=== PATIENT | female | born 1930 | race Caucasian/White ===

== ENCOUNTER 2017-03-07 14:15 | Inpatient (IN) ==
[2017-03-07] MEDS ORDERED: traMADol 50 MG TABLET PO PRN (15:29)
[2017-03-07] MEDS ORDERED: ONDANSETRON 4 MG/2 ML VIAL IV PRN (15:29)
[2017-03-07] MEDS ORDERED: MAGNESIUM HYDROXIDE SUSP 30 ML UDCUP PO PRN (15:29)
[2017-03-07] MEDS ORDERED: ACETAMINOPHEN 325 MG TABLET PO PRN (15:29)
[2017-03-07] MEDS ORDERED: SKIN HEALING OINT (AQUAPHOR) 50 GM TUBE TOP PRN (15:41)
[2017-03-07] MEDS: SODIUM CHLORIDE 0.45% 1,000 ML IV SCH (17:11)
[2017-03-07 17:14] LABS: Basophils # 0.1 10*3/uL (0.0-0.2); Basophils % 0.4 % (0.0-0.8); Eosinophils # 0.1 10*3/uL (0.0-0.87); Eosinophils % 0.8 % (0.00-10.9); Hematocrit 35.3 VOL% (35.7-47.0); Hemoglobin 11.6 GM/DL (12.0-16.0); Immature Granulocytes % 0.5 %; Immature Granulocytes Absolute 0.07 #; Lymphocytes # 1.6 10*3/uL (1.4-4.0); Lymphocytes % 12.8 % (21.3-54.2); Mean Corpuscular HGB Conc 32.9 GM/DL (32-36); Mean Corpuscular Hemoglobin 29 PG (27-34); Mean Corpuscular Volume 88.9 FL (87-102); Mean Platelet Volume 9.9 FL (9.6-12.0); Monocytes # 0.8 10*3/uL (0.11-0.8); Neutrophils # 10.1 10*3/uL (1.4-7.4); Neutrophils % 79.5 % (38.7-73.9); Platelet Count 507 T/CUMM (130-400); Red Blood Count 3.97 MC/CUMM (3.8-5.5); Red Cell Distribution Width 14.6 % (9.3-17.3); White Blood Count 12.8 T/CUMM (4-12)
[2017-03-07 17:24] LABS: Apearance,Urine Slightly Hazy (Clear); Bilirubin,Urine Negative (Negative); Blood, Urine Negative (Negative); Glucose,Urine (UA) Negative (Negative); Ketones,Urine Negative (Negative); Mucus,Urine Moderate /LPF (Occasional); Nitrite,Urine Negative (Negative); Protein,Urine 30 MG/DL; RBC,Urine 16 /HPF (0-4); Squamous Epithelial Cell,Urine Occasional /HPF (0-10); Urine Color Yellow (Yellow); Urine Specific Gravity 1.016 (1.001-1.035); Urine Urobilinogen < 2.0 EU/DL (0.2-1.0); WBC,Urine 2 /HPF (0-6)
[2017-03-07] MEDS: AZITHROMYCIN INJ 250 MG in SODIUM CHLORIDE 0.9% 250 ML IV SCH (17:42)
[2017-03-07] MEDS: CETIRIZINE 10 MG TABLET PO SCH (17:42)
--- NOTE | 2017-03-07 17:45 | XRay Report ---
Exam: XR chest 2V Indication: Shortness of breath Comparison study: Prior chest radiograph 04/26/2014 Findings: The heart, mediastinum and bony structures are stable from prior. There is improved aeration within the lung bases with diffuse mild hyperexpansion of the lungs and interstitial chronic scarring changes noted. There is no focal consolidation, pneumothorax or pleural effusion identified. Impression: Improved aeration within the lung bases with similar chronic COPD/scarring changes otherwise noted. No acute process. PROCEDURE INTERPRETED AT [facility] DEPARTMENT OF RADIOLOGY Final Report Signed by: Daniel Tarango
[2017-03-07 18:01] LABS: Albumin 2.6 G/DL (3.4-5.0); Bilirubin,Total 0.4 MG/DL (0.2-1.0); Calcium 8.9 MG/DL (8.5-10.1); Magnesium 2.3 MG/DL (1.8-2.4); Osmolality,Calculated 274.7 MOS/KG (273-304); Potassium 3.9 MMOL/L (3.5-5.1); Total Protein 6.4 G/DL (6.4-8.3)
[2017-03-07 19:36] LABS: Free T4 (Free Thyroxine) 1.63 NG/DL (0.76-1.46); Thyroid Stimulating Hormone 2.61 uIU/ml (0.358-3.74)
[2017-03-07] MEDS: BUDESONIDE 0.25 MG/2 ML NEB RESP TX SCH (19:38)
[2017-03-07] MEDS: ALBUTEROL/IPRATROPIUM 3 ML NEB RESP TX SCH (19:38)
--- NOTE | 2017-03-07 19:58 | Internal Med History&Physical ---
Assessment and Plan (1) COPD exacerbation Status: Acute Current Visit: Yes (2) Bronchiectasis Status: Chronic Current Visit: Yes (3) History of Mycobacterium avium intracellulare infection Status: Chronic Current Visit: Yes (4) Fever Status: Acute Current Visit: Yes (5) Generalized weakness Status: Chronic Current Visit: Yes (6) Leukocytosis Status: Acute Current Visit: Yes (7) Loss of appetite Status: Acute Current Visit: Yes (8) Malaise and fatigue Status: Acute Current Visit: Yes History of Present Illness Chief complaint: fever and malaise History of present illness: Ms. Peter is a 86 year old female with history of COPD, restrictive lung disease, bronchiectasis and on Azithromycin three days weekly, Mycobacterium avium intracellulare, allergic rhinitis, acid reflux, HTN, low magnesium, IBS, anemia iron deficiency and chronic illness, poor appetite, Vit D deficiency, who presented in clinic last week with fever and malaise, upper respiratory symptoms, cough. She was treated in clinic with Rocephin, DepoMedrol, Azithromycin, Medrol dose pack, and she did not feel any better. She was admitted today for further workup and treatment with IV medications and fluids. Dr. Fitzgerald consulted to evaluate whether this is a flare up of Mycobacterium infection. She has been febrile for several days. Home Medications Medication Instructions Recorded Confirmed Type Atenolol 25 mg PO 1200 10/11/16 03/07/17 History Ipratropium/Albuterol Inhaler 1 puff INH BID 10/11/16 03/07/17 History [Combivent Respimat Inhaler] Omeprazole 20 mg PO 1900 10/11/16 03/07/17 History Azithromycin Tab [Zithromax Tab] 250 mg PO DIRECTED 03/07/17 03/07/17 History Cholecalciferol (Vitamin D3) 5,000 unit PO 1200 03/07/17 03/07/17 History [Vitamin D3] Multivitamin [Multivitamins] 1 each PO 1200 03/07/17 03/07/17 History Sucralfate Tab [Carafate Tab] 1 gm PO ACHS 03/07/17 03/07/17 History Tiotropium Br/Olodaterol HCl 2 puffs IH 1200 03/07/17 03/07/17 History [Stiolto Respimat Inhal [place]] Allergies Allergy/AdvReac Type Severity Reaction Status Date / Time Amoxicillin [From Augmentin] Allergy Unknown Diarrhea Verified 10/07/16 09:36 ciprofloxacin [From Cipro] Allergy Unknown Unknown/Unable Verified 10/07/16 09: 36 to obtain clavulanic acid Allergy Unknown Diarrhea Verified 10/07/16 09:36 [From Augmentin] codeine Allergy Unknown Unknown/Unable Verified 10/07/16 09:36 to obtain sulfacetamide Allergy Unknown Unknown/Unable Verified 10/07/16 09:36 [From Sulfacet-R] to obtain sulfur [From Sulfacet-R] Allergy Unknown Unknown/Unable Verified 10/07/16 09:36 to obtain Medical,Surgical,& Family Hx - Medical History Cardio: History of: Hypertension Neurology: No history of: Seizures Respiratory: History of: Bronchitis, COPD, Pneumonia, Respiratory Problems ( macobacaterium avium; chronic bronchiectasis) Gastrointestinal: History of: GERD, GI Problems (diarrhea; IBS) Hematology: History of: Anemia (iron deficiency and chronic illness) - Surgical History HEENT Surgeries: Surgical HX of: Eye Surgery (cataract), Tonsilectomy & Adenoidectomy Abdominal Surgeries: Surgical HX of: Appendectomy, Cholecystectomy, Colonoscopy , EGD Reproductive Surgeries: Surgical HX of;: Hysterectomy (partial) - Family History Family History: Reports;: Family Heart Disease (sister), Family Hypertension ( sister,mother) - Social History Smoking Status: Never smoker Frequency of Alcohol Use: None Type of Drug Use: None Marital Status: Lives With:: Spouse Functional capacity: independent ambulation - Constitutional Constitutional: Present: anorexia, fatigue, fever(s), lethargy, malaise, night sweats, weakness, weight loss - EENT Nose, mouth and throat: Present: headache(s), nasal congestion, sinus pressure - Respiratory Respiratory: Present: cough, dyspnea on exertion - Gastrointestinal Gastrointestinal: Present: diarrhea (frequent) - Musculoskeletal Musculoskeletal: Present: muscle weakness, myalgias Exam - Constitutional Vitals: Period Temp Pulse Resp BP Sys/Vaughn Pulse Ox Last 24 Hr 99.6 F 86 20 151/76 95 General appearance: no acute distress - Head Head exam: Present: normocephalic - Eye Eye exam: Present: EOMI - Respiratory Respiratory exam: Present: rhonchi (scattered and diffuse right more so than left; good airflow overall) - Cardiovascular Cardiovascular exam: Present: regular rate and rhythm - GI/Abdominal GI/Abdominal exam: Present: soft. Absent: tenderness - Extremities Exam Extremities exam: Absent: edema - Neurological Exam Neurological exam: Present: alert, oriented X3 - Psychiatric Psychiatric exam: Present: normal affect - Skin Skin exam: Present: warm, dry Results - Labs CBC & BMP: 03/07/17 16:33 03/07/17 16:33 - Diagnostic Findings Procedure: Chest x-ray: image reviewed by me, report reviewed by me Quality Measures - Stroke Symptom Onset Unknown: No
[2017-03-07] MEDS: ENOXAPARIN 40 MG/0.4 ML SYRINGE SUBCUT SCH (21:07)
[2017-03-07] MEDS: MEGESTROL 400 MG/10 ML UDCUP PO SCH (21:08)
[2017-03-07] MEDS: DOCUSATE SODIUM 100 MG CAPSULE PO SCH (21:08)
[2017-03-07] MEDS: FAMOTIDINE 20 MG TABLET PO SCH (21:08)
[2017-03-07] MEDS: methylPREDNISolone SOD SUC 40 MG/1 ML VIAL IV SCH (21:09)
[2017-03-08] MEDS: ALBUTEROL/IPRATROPIUM 3 ML NEB RESP TX SCH ×4 (00:18→20:06)
[2017-03-08] MEDS: SODIUM CHLORIDE 0.45% 1,000 ML IV SCH ×3 (05:22→22:49)
[2017-03-08] MEDS: BUDESONIDE 0.25 MG/2 ML NEB RESP TX SCH ×2 (07:18→20:06)
--- NOTE | 2017-03-08 07:18 | Order Completion Report ---
See report scanned to EMR
--- NOTE | 2017-03-08 07:47 | Pulmonology Consult Note ---
Assessment and Plan (1) COPD exacerbation Status: Acute Assessment and plan: Treat with empiric antibiotics and steroids. She has been on 3 different rounds of oral antibiotics I think we should use broad-spectrum ones. Do need cultures for bacteria and AFB. I will plan bronchoscopy in the morning to obtain those Current Visit: Yes (2) Bronchiectasis Status: Chronic Assessment and plan: Long history of documented bronchiectasis. The Zithromax Tuesday is to decrease the number of bacterial infections associated with that. Current Visit: Yes (3) History of Mycobacterium avium intracellulare infection Status: Chronic Assessment and plan: Need to see if there is active infection. Current Visit: Yes History of Present Illness Chief complaint: Cough congestion fever History of present illness: Ms. Peter is a 86 year old female who has bronchiectasis and COPD. She has a previous history of Mycobacterium avium infection. She was treated at one time attempt chronically placed on Zithromax 3 days a week. This is primarily for her bronchiectasis but also would suppress M avium in some cases. She has now had cough congestion and fever going on for about 3 months. She has had 3 rounds of antibiotics and prednisone. Each time she would stop the antibiotic and prednisone for fever and cough would recur. She is in now with worsening symptoms. She feels a little better this morning. The question has come up as to whether this represents a bacterial infection with exacerbation of her bronchiectasis or recurrence of her Mycobacterium avium. I do think it would be worthwhile to get cultures to see exactly what the organism is. Home Medications Medication Instructions Recorded Confirmed Type Atenolol 25 mg PO 1200 10/11/16 03/07/17 History Ipratropium/Albuterol Inhaler 1 puff INH BID 10/11/16 03/07/17 History [Combivent Respimat Inhaler] Omeprazole 20 mg PO 1900 10/11/16 03/07/17 History Azithromycin Tab [Zithromax Tab] 250 mg PO DIRECTED 03/07/17 03/07/17 History Cholecalciferol (Vitamin D3) 5,000 unit PO 1200 03/07/17 03/07/17 History [Vitamin D3] Multivitamin [Multivitamins] 1 each PO 1200 03/07/17 03/07/17 History Sucralfate Tab [Carafate Tab] 1 gm PO ACHS 03/07/17 03/07/17 History Tiotropium Br/Olodaterol HCl 2 puffs IH 1200 03/07/17 03/07/17 History [Stiolto Respimat Inhal [place]] Allergies Allergy/AdvReac Type Severity Reaction Status Date / Time Amoxicillin [From Augmentin] Allergy Unknown Diarrhea Verified 10/07/16 09:36 ciprofloxacin [From Cipro] Allergy Unknown Unknown/Unable Verified 10/07/16 09: 36 to obtain clavulanic acid Allergy Unknown Diarrhea Verified 10/07/16 09:36 [From Augmentin] codeine Allergy Unknown Unknown/Unable Verified 10/07/16 09:36 to obtain sulfacetamide Allergy Unknown Unknown/Unable Verified 10/07/16 09:36 [From Sulfacet-R] to obtain sulfur [From Sulfacet-R] Allergy Unknown Unknown/Unable Verified 10/07/16 09:36 to obtain 12 point system: reviewed and no additional remarkable complaints except as stated - Constitutional Constitutional: Present: anorexia, fatigue, fever(s), malaise, night sweats, weakness, weight loss - EENT Nose, mouth and throat: Present: headache(s), nasal congestion, sinus pressure - Cardiovascular Cardiovascular: Present: dyspnea, dyspnea on exertion - Respiratory Respiratory: Present: cough, dyspnea, dyspnea on exertion, wheezing, change in phlegm color - Gastrointestinal Gastrointestinal: Present: diarrhea - Musculoskeletal Musculoskeletal: Present: arthralgias, muscle weakness Exam (Pulmonay) H&P - Constitutional Vitals: Period Temp Pulse Resp BP Sys/Vaughn Pulse Ox Last 24 Hr 97.6 F-99.6 F 62-88 16-20 117-151/50-76 91-100 Exam: Vital signs normal. Pupils react to light. Throat is clear. Chest reveals some musical rhonchi bilaterally. Heart normal rate and rhythm no murmurs, rubs or gallops. Abdomen soft nontender no masses. Bowel sounds present. Extremities no clubbing cyanosis or edema. Calves nontender. Medical,Surgical,& Family Hx - Medical History Cardio: History of: Hypertension Neurology: No history of: Seizures Respiratory: History of: Bronchitis, COPD, Pneumonia, Respiratory Problems ( macobacaterium avium; chronic bronchiectasis) Gastrointestinal: History of: GERD, GI Problems (diarrhea; IBS) Hematology: History of: Anemia (iron deficiency and chronic illness) - Surgical History HEENT Surgeries: Surgical HX of: Eye Surgery (cataract), Tonsilectomy & Adenoidectomy Abdominal Surgeries: Surgical HX of: Appendectomy, Cholecystectomy, Colonoscopy , EGD Reproductive Surgeries: Surgical HX of;: Hysterectomy (partial) - Family History Family History: Reports;: Family Heart Disease (sister), Family Hypertension ( sister,mother) - Social History Smoking Status: Never smoker Frequency of Alcohol Use: None Type of Drug Use: None Results - Labs CBC & BMP: 03/07/17 16:33 03/07/17 16:33 Lab Results: I have reviewed the past 24 hour labs - Diagnostic Findings Procedure: Chest x-ray: image reviewed by me (Bibasilar chronic interstitial changes. Those in the right lower lobe most consistent with bronchiectasis. Little change from previous x-ray here of 2013.) Quality Measures - Stroke Symptom Onset Unknown: No
[2017-03-08 08:05] LABS: PT Patient Result 10.7 SECS; Partial Thromboplastin Time 26.1 SECS (0-40)
[2017-03-08 08:08] LABS: Calcium 8.7 MG/DL (8.5-10.1); Osmolality,Calculated 276.5 MOS/KG (273-304); Potassium 3.8 MMOL/L (3.5-5.1)
[2017-03-08] MEDS: MEGESTROL 400 MG/10 ML UDCUP PO SCH ×2 (09:34→20:59)
[2017-03-08] MEDS: DOCUSATE SODIUM 100 MG CAPSULE PO SCH ×2 (09:34→20:59)
[2017-03-08] MEDS: methylPREDNISolone SOD SUC 40 MG/1 ML VIAL IV SCH ×2 (09:35→21:01)
[2017-03-08] MEDS: FAMOTIDINE 20 MG TABLET PO SCH ×2 (09:35→20:59)
[2017-03-08] MEDS: ATENOLOL 25 MG TABLET PO SCH (09:35)
[2017-03-08] MEDS: CETIRIZINE 10 MG TABLET PO SCH (09:35)
[2017-03-08] MEDS: AZITHROMYCIN INJ 250 MG in SODIUM CHLORIDE 0.9% 250 ML IV SCH (16:53)
[2017-03-08] MEDS: ENOXAPARIN 40 MG/0.4 ML SYRINGE SUBCUT SCH (21:00)
--- NOTE | 2017-03-08 21:09 | Internal Med Progress Note ---
Assessment and Plan (1) COPD exacerbation Status: Acute Current Visit: Yes (2) Bronchiectasis Status: Chronic Current Visit: Yes (3) History of Mycobacterium avium intracellulare infection Status: Chronic Current Visit: Yes (4) Fever Status: Acute Current Visit: Yes (5) Generalized weakness Status: Chronic Current Visit: Yes (6) Leukocytosis Status: Acute Current Visit: Yes (7) Loss of appetite Status: Chronic Current Visit: Yes (8) Malaise and fatigue Status: Chronic Current Visit: Yes Internal Medicine - PN: Subj Interval history: Ms. Peter is a 86 year old female with history of COPD, restrictive lung disease, bronchiectasis and on Azithromycin three days weekly, Mycobacterium avium intracellulare, allergic rhinitis, acid reflux, HTN, low magnesium, IBS, anemia iron deficiency and chronic illness, poor appetite, Vit D deficiency, who presented in clinic last week with fever and malaise, upper respiratory symptoms, cough. She is feeling better today. She will have bronchoscopy tomorrow obtaining samples to help delineate exactly which infection she actually has. Exam (Progress Note) - Constitutional Vitals: Period Temp Pulse Resp BP Sys/Vaughn Pulse Ox Last 24 Hr 97.3 F-99.1 F 62-88 16-20 117-139/50-55 91-100 General appearance: no acute distress - Respiratory Respiratory exam: Present: clear to auscultation bilaterally (very scattered rhonchi; largely clear) - Cardiovascular Cardiovascular exam: Present: regular rate and rhythm - GI/Abdominal GI/Abdominal exam: Present: soft. Absent: tenderness - Extremities Exam Extremities exam: Absent: edema - Neurological Exam Neurological exam: Present: alert, oriented X3 - Psychiatric Psychiatric exam: Present: normal mood - Skin Skin exam: Present: warm, dry Results - Labs CBC & BMP: 03/07/17 16:33 03/08/17 07:06 Quality Measures - Stroke Symptom Onset Unknown: No
[2017-03-09] MEDS: ALBUTEROL/IPRATROPIUM 3 ML NEB RESP TX SCH ×4 (01:05→19:09)
[2017-03-09] MEDS ORDERED: MEPERIDINE 50 MG/1 ML VIAL IM ONE (07:00)
[2017-03-09] MEDS ORDERED: PROMETHAZINE 25 MG/1 ML VIAL IM ONE (07:00)
[2017-03-09] MEDS: BUDESONIDE 0.25 MG/2 ML NEB RESP TX SCH ×2 (07:10→19:09)
[2017-03-09] MEDS ORDERED: MIDAZOLAM 2 MG/2 ML VIAL ONE (07:13)
[2017-03-09] MEDS ORDERED: MIDAZOLAM 2 MG/2 ML VIAL IV ONE (07:30)
[2017-03-09] MEDS ORDERED: LIDOCAINE 1% 20 ML VIAL MISC INJ ONE (07:30)
[2017-03-09] MEDS ORDERED: LIDOCAINE 2% 20 ML VIAL RESP TX ONE (07:30)
[2017-03-09 07:43] LABS: Basophils % 0.1 % (0.0-0.8); Hematocrit 33.6 VOL% (35.7-47.0); Hemoglobin 10.9 GM/DL (12.0-16.0); Immature Granulocytes % 0.3 %; Immature Granulocytes Absolute 0.02 #; Lymphocytes # 1.5 10*3/uL (1.4-4.0); Lymphocytes % 19.2 % (21.3-54.2); Mean Corpuscular HGB Conc 32.4 GM/DL (32-36); Mean Corpuscular Hemoglobin 29 PG (27-34); Mean Corpuscular Volume 88.7 FL (87-102); Mean Platelet Volume 9.8 FL (9.6-12.0); Monocytes # 0.4 10*3/uL (0.11-0.8); Neutrophils # 5.9 10*3/uL (1.4-7.4); Neutrophils % 75.4 % (38.7-73.9); Platelet Count 429 T/CUMM (130-400); Red Blood Count 3.79 MC/CUMM (3.8-5.5); Red Cell Distribution Width 14.7 % (9.3-17.3); White Blood Count 7.8 T/CUMM (4-12)
--- NOTE | 2017-03-09 07:53 | Pulmonology Progress Note ---
Pulmonary - PN: Subj Interval history: This 86-year-old white female came in with exacerbation of her chronic bronchitis. She has bronchiectasis and has been treated chronically with Zithromax. She has a remote history of atypical TB with Mycobacterium avium. She is set up for bronchoscopy this morning. Exam (Progress Note) - Constitutional Vitals: Period Temp Pulse Resp BP Sys/Vaughn Pulse Ox Last 24 Hr 97.3 F-98.8 F 72-108 13-24 119-171/51-93 92-100 Exam: Patient's alert and afebrile. Pupils react to light. Throat is clear. Neck supple no bruits. Chest reveals some basilar rhonchi bilaterally as well as over the right middle lobe and lingula. Heart normal rate and rhythm no murmurs. Abdomen soft nontender no masses. Extremities no clubbing cyanosis edema. Calves nontender. Results - Labs CBC & BMP: 03/09/17 07:02 03/08/17 07:06 Lab Results: I have reviewed the past 24 hour labs Assessment and Plan (1) COPD exacerbation Status: Acute Assessment and plan: Treat with empiric antibiotics and steroids. She has been on 3 different rounds of oral antibiotics I think we should use broad-spectrum ones. Do need cultures for bacteria and AFB. I will plan bronchoscopy in the morning to obtain those 03/09/2017 continuing antibiotics and steroids as well as bronchodilators. Will check cultures from bronchoscopy when they are available. That would probably be Tuesday. Current Visit: Yes (2) Bronchiectasis Status: Chronic Assessment and plan: Long history of documented bronchiectasis. The Zithromax Tuesday is to decrease the number of bacterial infections associated with that. 03/09/2017 needs broad-spectrum antibiotics for this. Current Visit: Yes (3) History of Mycobacterium avium intracellulare infection Status: Chronic Assessment and plan: Need to see if there is active infection. 03/09/2017 check bronchial lavage for AFB. Current Visit: Yes
--- NOTE | 2017-03-09 07:56 | Operative Note ---
Date of procedure: 03/09/17 (Fiberoptic bronchoscopy with bronchoalveolar lavage both lower lobe) Pre-op diagnosis: Bronchiectasis with superimposed infection, chronic atypical TB Post-op diagnosis: same Procedure: Patient was given preoperative medications on the rodriguez. She was transported to the bronchoscopy suite. After an appropriate timeout to be sure we were dealing with Komal Peter, the patient was topically anesthetized in the nose and nasopharynx with Xylocaine. 3 L of nasal oxygen was placed in the left nares. Patient was given 2 mg of Versed intravenously. The fiberoptic bronchoscope was introduced via the right naris. The vocal cords were identified and noted to function normally with phonation. The trachea was entered and was noted to be mildly erythematous. There were increased secretions. 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 The donna was sharp. Right and left lungs were carefully inspected to the subsegmental level with no lesions seen. There were purulent secretions in the right middle lobe right lower lobe and left upper lobe primarily lingula. The bronchoscope was positioned first in the right middle lobe where we use 20 mL aliquots of saline for local alveolar lavage. This was done in the right middle lobe as well as right lower lobe. We then changed the trap and moved to the left side and lavage was carried out in the lingula. The bronchoscope was removed. Patient returned to her room in stable condition Anesthesia: conscious sedation Surgeon / Physician: Yung Fitzgerald Estimated blood loss: none Specimens: other (Bronchoalveolar lavage for routine AFB and fungal cultures as well as cytology, bilateral) Condition: stable Disposition: floor Results - Labs CBC & BMP: 03/09/17 07:02 03/08/17 07:06 Discharge Plan - Discharge Medications No Action Omeprazole 20 mg PO 1900 Azithromycin Tab [Zithromax Tab] 250 mg PO DIRECTED Multivitamin [Multivitamins] 1 each PO 1200 Ipratropium/Albuterol Inhaler [Combivent Respimat Inhaler] 1 puff INH BID Atenolol 25 mg PO 1200 Cholecalciferol (Vitamin D3) [Vitamin D3] 5,000 unit PO 1200 Sucralfate Tab [Carafate Tab] 1 gm PO ACHS Tiotropium Br/Olodaterol HCl [Stiolto Respimat Inhal [place]] 2 puffs IH 1200 - Follow Up or Referral - Forms/Instructions
[2017-03-09 08:12] LABS: Calcium 8.5 MG/DL (8.5-10.1); Osmolality,Calculated 282.1 MOS/KG (273-304); Potassium 3.7 MMOL/L (3.5-5.1)
[2017-03-09] MEDS: MEGESTROL 400 MG/10 ML UDCUP PO SCH ×2 (09:46→20:35)
[2017-03-09] MEDS: DOCUSATE SODIUM 100 MG CAPSULE PO SCH ×2 (09:46→20:35)
[2017-03-09] MEDS: methylPREDNISolone SOD SUC 40 MG/1 ML VIAL IV SCH ×2 (09:47→20:35)
[2017-03-09] MEDS: FAMOTIDINE 20 MG TABLET PO SCH ×2 (09:47→20:35)
[2017-03-09] MEDS: CETIRIZINE 10 MG TABLET PO SCH (09:47)
[2017-03-09] MEDS: ATENOLOL 25 MG TABLET PO SCH (09:47)
[2017-03-09] MEDS: SODIUM CHLORIDE 0.45% 1,000 ML IV SCH ×2 (09:47→16:32)
[2017-03-09] MEDS: AZITHROMYCIN INJ 250 MG in SODIUM CHLORIDE 0.9% 250 ML IV SCH (15:43)
--- NOTE | 2017-03-09 16:29 | Internal Med Progress Note ---
Assessment and Plan (1) COPD exacerbation Status: Acute Current Visit: Yes (2) Bronchiectasis Status: Chronic Current Visit: Yes (3) History of Mycobacterium avium intracellulare infection Status: Chronic Current Visit: Yes (4) Fever Status: Acute Current Visit: Yes (5) Generalized weakness Status: Chronic Current Visit: Yes (6) Leukocytosis Status: Acute Current Visit: Yes (7) Loss of appetite Status: Chronic Current Visit: Yes (8) Malaise and fatigue Status: Chronic Current Visit: Yes Internal Medicine - PN: Subj Interval history: Ms. Peter is a 86 year old female with history of COPD, restrictive lung disease, bronchiectasis and on Azithromycin three days weekly, Mycobacterium avium intracellulare, allergic rhinitis, acid reflux, HTN, low magnesium, IBS, anemia iron deficiency and chronic illness, poor appetite, Vit D deficiency, who presented in clinic last week with fever and malaise, upper respiratory symptoms, cough. She continues to feel better and is post-bronchoscopy. Cultures pending but no mycobacterium apparent. WBC improved today and afebrile. Will order physical therapy for tomorrow. Exam (Progress Note) - Constitutional Vitals: Period Temp Pulse Resp BP Sys/Vaughn Pulse Ox Last 24 Hr 97.3 F-98.8 F 74-118 12-24 118-183/46-93 92-100 General appearance: no acute distress - Respiratory Respiratory exam: Present: clear to auscultation bilaterally (rhonchi largely resolved) - Cardiovascular Cardiovascular exam: Present: regular rate and rhythm - GI/Abdominal GI/Abdominal exam: Present: soft. Absent: tenderness - Extremities Exam Extremities exam: Absent: edema - Neurological Exam Neurological exam: Present: alert, oriented X3 - Psychiatric Psychiatric exam: Present: normal mood - Skin Skin exam: Present: warm, dry Results - Labs CBC & BMP: 03/09/17 07:02 03/09/17 07:02 Quality Measures - Stroke Symptom Onset Unknown: No
[2017-03-09] MEDS: ENOXAPARIN 40 MG/0.4 ML SYRINGE SUBCUT SCH (20:35)
[2017-03-10 05:30] LABS: Hematocrit 30.9 VOL% (35.7-47.0); Hemoglobin 10.1 GM/DL (12.0-16.0); Immature Granulocytes % 0.5 %; Immature Granulocytes Absolute 0.05 #; Lymphocytes # 1.3 10*3/uL (1.4-4.0); Lymphocytes % 12.2 % (21.3-54.2); Mean Corpuscular HGB Conc 32.7 GM/DL (32-36); Mean Corpuscular Hemoglobin 29 PG (27-34); Mean Corpuscular Volume 89.3 FL (87-102); Mean Platelet Volume 9.8 FL (9.6-12.0); Monocytes # 0.4 10*3/uL (0.11-0.8); Monocytes % 3.8 % (1.7-12.7); NRBC # 0.02 10*3/uL; Neutrophils # 9.1 10*3/uL (1.4-7.4); Neutrophils % 83.5 % (38.7-73.9); Platelet Count 396 T/CUMM (130-400); Red Blood Count 3.46 MC/CUMM (3.8-5.5); Red Cell Distribution Width 15.1 % (9.3-17.3); White Blood Count 10.9 T/CUMM (4-12)
[2017-03-10 06:01] LABS: Calcium 8.5 MG/DL (8.5-10.1); Potassium 3.9 MMOL/L (3.5-5.1)
[2017-03-10] MEDS: ALBUTEROL/IPRATROPIUM 3 ML NEB RESP TX SCH ×4 (07:03→19:17)
[2017-03-10] MEDS: BUDESONIDE 0.25 MG/2 ML NEB RESP TX SCH ×2 (07:03→19:24)
--- NOTE | 2017-03-10 07:29 | Pulmonology Progress Note ---
Pulmonary - PN: Subj Interval history: This 86-year-old white female came in with exacerbation of her chronic bronchitis. She has bronchiectasis and has been treated chronically with Zithromax. She has a remote history of atypical TB with Mycobacterium avium. She is set up for bronchoscopy this morning. 03/10/2017 patient is feeling better today. We cleaned out a good bit of secretions yesterday. She has infected bronchiectasis. Cultures will be 2-3 weeks coming out as far as M avium is concerned. The negative smears do not necessarily rule out active disease. However would not start her back on full treatment for that at this time. Exam (Progress Note) - Constitutional Vitals: Period Temp Pulse Resp BP Sys/Vaughn Pulse Ox Last 24 Hr 97.5 F-98.6 F 74-118 12-24 112-183/46-93 92-100 Exam: Patient's alert and afebrile. Pupils react to light. Throat is clear. Neck supple no bruits. Chest reveals a few basilar rhonchi bilaterally as well as over the right middle lobe and lingula. Heart normal rate and rhythm no murmurs. Abdomen soft nontender no masses. Extremities no clubbing cyanosis edema. Calves nontender. Results - Labs CBC & BMP: 03/10/17 04:49 03/10/17 04:49 Lab Results: I have reviewed the past 24 hour labs Assessment and Plan (1) COPD exacerbation Status: Acute Assessment and plan: Treat with empiric antibiotics and steroids. She has been on 3 different rounds of oral antibiotics I think we should use broad-spectrum ones. Do need cultures for bacteria and AFB. I will plan bronchoscopy in the morning to obtain those 03/09/2017 continuing antibiotics and steroids as well as bronchodilators. Will check cultures from bronchoscopy when they are available. That would probably be Tuesday. 03/10/2017 continuing broad-spectrum antibiotics and steroids. Check cultures tomorrow. Probably can start reducing steroids then Current Visit: Yes (2) Bronchiectasis Status: Chronic Assessment and plan: Long history of documented bronchiectasis. The Zithromax Tuesday is to decrease the number of bacterial infections associated with that. 03/09/2017 needs broad-spectrum antibiotics for this. 03/10/2017 continuing broad-spectrum antibiotics for infected bronchiectasis. Hopefully we will get something from the cultures tomorrow. Current Visit: Yes (3) History of Mycobacterium avium intracellulare infection Status: Chronic Assessment and plan: Need to see if there is active infection. 03/09/2017 check bronchial lavage for AFB. 03/10/2017 smears for AFB were negative. However with Mycobacterium avium it is often the case that the smears are negative and cultures youth development professional positive. See no reason to change treatment until we get that report out. Current Visit: Yes
[2017-03-10] MEDS: FAMOTIDINE 20 MG TABLET PO SCH ×2 (09:16→20:27)
[2017-03-10] MEDS: methylPREDNISolone SOD SUC 40 MG/1 ML VIAL IV SCH ×2 (09:16→20:26)
[2017-03-10] MEDS: ATENOLOL 25 MG TABLET PO SCH (09:17)
[2017-03-10] MEDS: MEGESTROL 400 MG/10 ML UDCUP PO SCH ×2 (09:17→20:27)
[2017-03-10] MEDS: CETIRIZINE 10 MG TABLET PO SCH (09:17)
[2017-03-10] MEDS: SODIUM CHLORIDE 0.45% 1,000 ML IV SCH ×3 (09:17→17:29)
[2017-03-10] MEDS: DOCUSATE SODIUM 100 MG CAPSULE PO SCH ×2 (09:17→20:27)
--- NOTE | 2017-03-10 12:16 | Pathology Report from [facility] ---
[facility] [place] ACCESSION # : [id number] PATIENT NAME : Komal Peter ORDERING DR : YEMI BANDA MD CLINICAL HX: Chronic bronchitis, bronchiectasis POST-OP DX: Same SPECIMEN INFO: Lavage,Bronchial,Right - 15 mls light benjamin, cloudy CLASS: I CLASS COMMENTS: Acute inflammation, scant squamous and bronchial cells, bacteria.CELL BLOCK: Same CLASS LEGEND: CLASS 0 Material inadequate for diagnosis because of (see comment) CLASS I Absence of atypical or abnormal cells CLASS II Atypical Cytology but no evidence of malignancy CLASS III Cytology suggestive of but not conclusive for malignancy CLASS IV Cytology strongly suggestive of malignancy CLASS V Cytology conclusive for malignancy COLLECTED DATE: 03/09/2017 [facility] REPORT DATE: 03/10/2017 ELECTRONICALLY SIGNED BY: Pema Hubbard M.D. 03/10/2017 - 8:31:36 MTDNolvia
--- NOTE | 2017-03-10 12:16 | Pathology Report from [facility] ---
[facility] [place] ACCESSION # : [id number] PATIENT NAME : Komal Peter ORDERING DR : YEMI BANDA MD CLINICAL HX: Chronic Bronchitis, bronchiectasis POST-OP DX: Same SPECIMEN INFO: Lavage,Bronchial,Left - 10 mls light benjamin, cloudy CLASS: I CLASS COMMENTS: Acute inflammation, scant squamous and bronchial cells, bacteria.CELL BLOCK: Same CLASS LEGEND: CLASS 0 Material inadequate for diagnosis because of (see comment) CLASS I Absence of atypical or abnormal cells CLASS II Atypical Cytology but no evidence of malignancy CLASS III Cytology suggestive of but not conclusive for malignancy CLASS IV Cytology strongly suggestive of malignancy CLASS V Cytology conclusive for malignancy COLLECTED DATE: 03/09/2017 [facility] REPORT DATE: 03/10/2017 ELECTRONICALLY SIGNED BY: Pema Hubbard M.D. 03/10/2017 - 8:34:20 MTDNolvia
[2017-03-10] MEDS: AZITHROMYCIN INJ 250 MG in SODIUM CHLORIDE 0.9% 250 ML IV SCH (15:47)
--- NOTE | 2017-03-10 20:12 | Internal Med Progress Note ---
Assessment and Plan (1) COPD exacerbation Status: Acute Current Visit: Yes (2) Bronchiectasis Status: Chronic Current Visit: Yes (3) History of Mycobacterium avium intracellulare infection Status: Chronic Current Visit: Yes (4) Fever Status: Resolved Current Visit: Yes (5) Generalized weakness Status: Chronic Current Visit: Yes (6) Leukocytosis Status: Acute Current Visit: Yes (7) Loss of appetite Status: Chronic Current Visit: Yes (8) Malaise and fatigue Status: Chronic Current Visit: Yes Internal Medicine - PN: Subj Interval history: Ms. Peter is a 86 year old female with history of COPD, restrictive lung disease, bronchiectasis and on Azithromycin three days weekly, Mycobacterium avium intracellulare, allergic rhinitis, acid reflux, HTN, low magnesium, IBS, anemia iron deficiency and chronic illness, poor appetite, Vit D deficiency, who presented in clinic last week with fever and malaise, upper respiratory symptoms, cough. She continues to feel better and is post-bronchoscopy. Cultures pending but no mycobacterium apparent. WBC improved today and afebrile. Will order physical therapy for tomorrow. Mar 10: She continues to feel better and is coughing up more sputum. Awaiting culture results. Exam (Progress Note) - Constitutional Vitals: Period Temp Pulse Resp BP Sys/Vaughn Pulse Ox Last 24 Hr 96.4 F-98.3 F 65-93 16-20 113-150/52-73 94-99 General appearance: no acute distress - Respiratory Respiratory exam: Present: clear to auscultation bilaterally - Cardiovascular Cardiovascular exam: Present: regular rate and rhythm - GI/Abdominal GI/Abdominal exam: Absent: tenderness, soft - Extremities Exam Extremities exam: Absent: edema - Neurological Exam Neurological exam: Present: alert, oriented X3 - Psychiatric Psychiatric exam: Present: normal mood - Skin Skin exam: Present: warm, dry Results - Labs CBC & BMP: 03/10/17 04:49 03/10/17 04:49 Quality Measures - Stroke Symptom Onset Unknown: No
[2017-03-10] MEDS: ENOXAPARIN 40 MG/0.4 ML SYRINGE SUBCUT SCH (20:27)
[2017-03-11 03:36] LABS: Basophils % 0.2 % (0.0-0.8); Eosinophils % 0.1 % (0.00-10.9); Hematocrit 31.5 VOL% (35.7-47.0); Hemoglobin 10.2 GM/DL (12.0-16.0); Immature Granulocytes % 0.7 %; Immature Granulocytes Absolute 0.06 #; Lymphocytes # 1.4 10*3/uL (1.4-4.0); Lymphocytes % 16.3 % (21.3-54.2); Mean Corpuscular HGB Conc 32.4 GM/DL (32-36); Mean Corpuscular Hemoglobin 29 PG (27-34); Monocytes # 0.3 10*3/uL (0.11-0.8); Neutrophils # 6.6 10*3/uL (1.4-7.4); Neutrophils % 78.7 % (38.7-73.9); Platelet Count 400 T/CUMM (130-400); Red Blood Count 3.54 MC/CUMM (3.8-5.5); Red Cell Distribution Width 15.1 % (9.3-17.3); White Blood Count 8.3 T/CUMM (4-12)
[2017-03-11 04:12] LABS: Calcium 8.4 MG/DL (8.5-10.1); Osmolality,Calculated 290.7 MOS/KG (273-304); Potassium 4.1 MMOL/L (3.5-5.1)
[2017-03-11] MEDS: BUDESONIDE 0.25 MG/2 ML NEB RESP TX SCH ×2 (07:20→18:54)
[2017-03-11] MEDS: ALBUTEROL/IPRATROPIUM 3 ML NEB RESP TX SCH ×4 (07:20→18:54)
--- NOTE | 2017-03-11 08:20 | Pulmonology Progress Note ---
Pulmonary - PN: Subj Interval history: This 86-year-old white female came in with exacerbation of her chronic bronchitis. She has bronchiectasis and has been treated chronically with Zithromax. She has a remote history of atypical TB with Mycobacterium avium. She is set up for bronchoscopy this morning. 03/10/2017 patient is feeling better today. We cleaned out a good bit of secretions yesterday. She has infected bronchiectasis. Cultures will be 2-3 weeks coming out as far as M avium is concerned. The negative smears do not necessarily rule out active disease. However would not start her back on full treatment for that at this time. 03/11/2017 bronchial washings are showing cultures for gram-negative rods. We do not have the final identification or sensitivity. Smears for AFB were negative. I will add Merrem. She is likely to have a resistant type gram- negative urban. Adjust antibiotics according to sensitivities when they come out. This is infected bronchiectasis. Exam (Progress Note) - Constitutional Vitals: Period Temp Pulse Resp BP Sys/Vaughn Pulse Ox Last 24 Hr 96.4 F-98.3 F 65-81 18-20 113-138/52-70 95-99 Exam: Patient's alert and afebrile. Pupils react to light. Throat is clear. Neck supple no bruits. Chest reveals a few basilar rhonchi bilaterally as well as over the right middle lobe and lingula. Heart normal rate and rhythm no murmurs. Abdomen soft nontender no masses. Extremities no clubbing cyanosis edema. Calves nontender. Results - Labs CBC & BMP: 03/11/17 01:44 03/11/17 01:44 Lab Results: I have reviewed the past 24 hour labs Assessment and Plan (1) COPD exacerbation Status: Acute Assessment and plan: Treat with empiric antibiotics and steroids. She has been on 3 different rounds of oral antibiotics I think we should use broad-spectrum ones. Do need cultures for bacteria and AFB. I will plan bronchoscopy in the morning to obtain those 03/09/2017 continuing antibiotics and steroids as well as bronchodilators. Will check cultures from bronchoscopy when they are available. That would probably be Tuesday. 03/10/2017 continuing broad-spectrum antibiotics and steroids. Check cultures tomorrow. Probably can start reducing steroids then 03/11/2017 on low-dose steroids and bronchodilators. Primarily getting antibiotics for infected bronchiectasis with exacerbation of COPD. Current Visit: Yes (2) Bronchiectasis Status: Chronic Assessment and plan: Long history of documented bronchiectasis. The Zithromax Tuesday is to decrease the number of bacterial infections associated with that. 03/09/2017 needs broad-spectrum antibiotics for this. 03/10/2017 continuing broad-spectrum antibiotics for infected bronchiectasis. Hopefully we will get something from the cultures tomorrow. 03/11/2017 check cultures tomorrow with sensitivities. Current Visit: Yes (3) History of Mycobacterium avium intracellulare infection Status: Chronic Assessment and plan: Need to see if there is active infection. 03/09/2017 check bronchial lavage for AFB. 03/10/2017 smears for AFB were negative. However with Mycobacterium avium it is often the case that the smears are negative and cultures die turner positive. See no reason to change treatment until we get that report out. 03/11/2017 likely does not have active Mycobacterium avium. However a culture could grow it out in 2-3 weeks. We will review at that time Current Visit: Yes
[2017-03-11] MEDS: methylPREDNISolone SOD SUC 40 MG/1 ML VIAL IV SCH ×2 (08:43→20:20)
[2017-03-11] MEDS: MEGESTROL 400 MG/10 ML UDCUP PO SCH ×2 (08:43→20:20)
[2017-03-11] MEDS: DOCUSATE SODIUM 100 MG CAPSULE PO SCH ×2 (08:43→20:20)
[2017-03-11] MEDS: CETIRIZINE 10 MG TABLET PO SCH (08:43)
[2017-03-11] MEDS: ATENOLOL 25 MG TABLET PO SCH (08:43)
[2017-03-11] MEDS: FAMOTIDINE 20 MG TABLET PO SCH ×2 (08:43→20:20)
[2017-03-11] MEDS: MEROPENEM 500 MG in SODIUM CHLORIDE 0.9% 50 ML IV SCH ×2 (08:44→16:23)
[2017-03-11] MEDS: SODIUM CHLORIDE 0.45% 1,000 ML IV SCH (12:50)
[2017-03-11] MEDS: AZITHROMYCIN INJ 250 MG in SODIUM CHLORIDE 0.9% 250 ML IV SCH (17:19)
[2017-03-11] MEDS: ENOXAPARIN 40 MG/0.4 ML SYRINGE SUBCUT SCH (20:20)
[2017-03-11] MEDS: BENZONATATE 100 MG CAPSULE PO SCH (20:20)
--- NOTE | 2017-03-11 21:12 | Internal Med Progress Note ---
Assessment and Plan (1) COPD exacerbation Status: Acute Current Visit: Yes (2) Bronchiectasis Status: Chronic Current Visit: Yes Qualifiers: Bronchiectasis type: with acute lower respiratory infection Qualified Code( s): J47.0 - Bronchiectasis with acute lower respiratory infection (3) History of Mycobacterium avium intracellulare infection Status: Chronic Current Visit: Yes (4) Fever Status: Resolved Current Visit: Yes (5) Generalized weakness Status: Chronic Current Visit: Yes (6) Leukocytosis Status: Acute Current Visit: Yes (7) Loss of appetite Status: Chronic Current Visit: Yes (8) Malaise and fatigue Status: Chronic Current Visit: Yes Internal Medicine - PN: Subj Interval history: Ms. Peter is a 86 year old female with history of COPD, restrictive lung disease, bronchiectasis and on Azithromycin three days weekly, Mycobacterium avium intracellulare, allergic rhinitis, acid reflux, HTN, low magnesium, IBS, anemia iron deficiency and chronic illness, poor appetite, Vit D deficiency, who presented in clinic last week with fever and malaise, upper respiratory symptoms, cough. She continues to feel better and is post-bronchoscopy. Cultures pending but no mycobacterium apparent. WBC improved today and afebrile. Will order physical therapy for tomorrow. Mar 10: She continues to feel better and is coughing up more sputum. Awaiting culture results. Mar 11: She has Pseudomonas infection/bronchiectasis and is now on Meropenem as of today. Overall, she is feeling better. Will stay over the weekend. Very sick upon admission. Exam (Progress Note) - Constitutional Vitals: Period Temp Pulse Resp BP Sys/Vaughn Pulse Ox Last 24 Hr 96.9 F-98.3 F 60-89 16-20 116-146/63-70 95-99 General appearance: no acute distress - Respiratory Respiratory exam: Present: clear to auscultation bilaterally - Cardiovascular Cardiovascular exam: Present: regular rate and rhythm - GI/Abdominal GI/Abdominal exam: Present: soft. Absent: tenderness - Neurological Exam Neurological exam: Present: alert - Psychiatric Psychiatric exam: Present: normal mood - Skin Skin exam: Present: warm, dry Results - Labs CBC & BMP: 03/11/17 01:44 03/11/17 01:44 Quality Measures - Stroke Symptom Onset Unknown: No
[2017-03-12] MEDS: MEROPENEM 500 MG in SODIUM CHLORIDE 0.9% 50 ML IV SCH ×2 (00:42→08:21)
[2017-03-12 04:31] LABS: Basophils % 0.1 % (0.0-0.8); Hematocrit 32.2 VOL% (35.7-47.0); Hemoglobin 10.5 GM/DL (12.0-16.0); Immature Granulocytes Absolute 0.08 #; Lymphocytes # 1.1 10*3/uL (1.4-4.0); Lymphocytes % 13.6 % (21.3-54.2); Mean Corpuscular HGB Conc 32.6 GM/DL (32-36); Mean Corpuscular Hemoglobin 29 PG (27-34); Mean Corpuscular Volume 88.5 FL (87-102); Mean Platelet Volume 10.1 FL (9.6-12.0); Monocytes # 0.1 10*3/uL (0.11-0.8); Monocytes % 1.5 % (1.7-12.7); Neutrophils # 6.9 10*3/uL (1.4-7.4); Neutrophils % 83.8 % (38.7-73.9); Platelet Count 436 T/CUMM (130-400); Red Blood Count 3.64 MC/CUMM (3.8-5.5); Red Cell Distribution Width 15.2 % (9.3-17.3); White Blood Count 8.2 T/CUMM (4-12)
[2017-03-12 05:10] LABS: Calcium 8.6 MG/DL (8.5-10.1); Potassium 4.3 MMOL/L (3.5-5.1)
[2017-03-12] MEDS: SODIUM CHLORIDE 0.45% 1,000 ML IV SCH ×4 (06:00→23:36)
[2017-03-12] MEDS: BUDESONIDE 0.25 MG/2 ML NEB RESP TX SCH ×2 (07:41→19:03)
[2017-03-12] MEDS: ALBUTEROL/IPRATROPIUM 3 ML NEB RESP TX SCH ×4 (07:41→19:03)
[2017-03-12] MEDS: BENZONATATE 100 MG CAPSULE PO SCH ×3 (08:20→21:40)
[2017-03-12] MEDS: DOCUSATE SODIUM 100 MG CAPSULE PO SCH ×2 (08:20→20:56)
[2017-03-12] MEDS: ATENOLOL 25 MG TABLET PO SCH (08:20)
[2017-03-12] MEDS: CETIRIZINE 10 MG TABLET PO SCH (08:20)
[2017-03-12] MEDS: MEGESTROL 400 MG/10 ML UDCUP PO SCH ×2 (08:20→20:55)
[2017-03-12] MEDS: FAMOTIDINE 20 MG TABLET PO SCH ×2 (08:20→20:56)
[2017-03-12] MEDS: methylPREDNISolone SOD SUC 40 MG/1 ML VIAL IV SCH ×2 (08:21→20:56)
--- NOTE | 2017-03-12 14:49 | Pulmonology Progress Note ---
Pulmonary - PN: Subj Interval history: Patient is an 86-year-old white lady that has a history of bronchiectasis and bronchitis and came in with acute exacerbation. She has had Mycobacterium avium in the past. She had a bronchoscope this week and has Pseudomonas growing out of the washings. She says she is feeling better with less cough and congestion. She had a fairly good night. She is not having that much trouble with her breathing at present. Exam (Progress Note) - Constitutional Vitals: Period Temp Pulse Resp BP Sys/Vaughn Pulse Ox Last 24 Hr 97.5 F-98.2 F 65-89 18-20 119-144/59-76 95-99 General appearance: normal weight, no acute distress - Head Head exam: Present: normal inspection, normocephalic - Eye Eye exam: Present: EOMI. Absent: scleral icterus Pupils: Present: KIKO - ENT ENT exam: Present: normal exam - Neck Neck exam: Absent: lymphadenopathy, thyromegaly - Respiratory Respiratory exam: Present: prolonged expiratory phase, rhonchi. Absent: accessory muscle use - Cardiovascular Cardiovascular exam: Present: regular rate and rhythm. Absent: gallop, systolic murmur - GI/Abdominal GI/Abdominal exam: Present: normal bowel sounds, soft. Absent: organomegaly, tenderness - Extremities Exam Extremities exam: Absent: calf tenderness, edema - Neurological Exam Neurological exam: Present: alert, oriented X3, CN II-XII intact - Psychiatric Psychiatric exam: Present: normal affect - Skin Skin exam: Present: warm, dry Results - Labs CBC & BMP: 03/12/17 02:51 03/12/17 02:51 Assessment and Plan (1) COPD exacerbation Status: Acute Assessment and plan: Patient is feeling better and her breathing is better. She will continue with her vigorous respiratory therapy. Current Visit: Yes (2) Bronchiectasis Status: Chronic Assessment and plan: The patient has grown Pseudomonas out of the washings. Will adjust antibiotics. Current Visit: Yes Qualifiers: Bronchiectasis type: with acute lower respiratory infection Qualified Code( s): J47.0 - Bronchiectasis with acute lower respiratory infection (3) History of Mycobacterium avium intracellulare infection Status: Chronic Assessment and plan: So far her smears are negative for Mycobacterium. Current Visit: Yes
--- NOTE | 2017-03-12 15:07 | Family Practice Progress Note ---
Family Practice - PN: Subj Interval history: Patient is resting well. Still has intermittent cough but denies any new complaints. Her vitals remained stable. Her a.m. lab studies are stable. Her bronchial cultures are positive for pseudomonas aeruginosa which is sensitive to Fortaz. Lung swenson are clear to auscultation at present. Will have patient increase activity and continue present treatment plan Exam (Progress Note) - Constitutional Vitals: Period Temp Pulse Resp BP Sys/Vaughn Pulse Ox Last 24 Hr 97.5 F-98.2 F 65-89 18-20 119-144/59-76 95-99 Results - Labs CBC & BMP: 03/12/17 02:51 03/12/17 02:51 Quality Measures - Stroke Symptom Onset Unknown: No
[2017-03-12] MEDS: AZITHROMYCIN INJ 250 MG in SODIUM CHLORIDE 0.9% 250 ML IV SCH (16:45)
[2017-03-12] MEDS: SUCRALFATE 1 GM TABLET PO SCH ×2 (17:15→20:56)
[2017-03-12] MEDS: ENOXAPARIN 40 MG/0.4 ML SYRINGE SUBCUT SCH (20:56)
[2017-03-13 06:29] LABS: Basophils % 0.1 % (0.0-0.8); Hematocrit 35.2 VOL% (35.7-47.0); Hemoglobin 11.5 GM/DL (12.0-16.0); Immature Granulocytes % 0.7 %; Immature Granulocytes Absolute 0.07 #; Lymphocytes # 1.7 10*3/uL (1.4-4.0); Lymphocytes % 16.7 % (21.3-54.2); Mean Corpuscular HGB Conc 32.7 GM/DL (32-36); Mean Corpuscular Hemoglobin 29 PG (27-34); Mean Corpuscular Volume 89.1 FL (87-102); Mean Platelet Volume 9.2 FL (9.6-12.0); Monocytes # 0.4 10*3/uL (0.11-0.8); Monocytes % 3.7 % (1.7-12.7); Neutrophils % 78.8 % (38.7-73.9); Platelet Count 449 T/CUMM (130-400); Red Blood Count 3.95 MC/CUMM (3.8-5.5); Red Cell Distribution Width 15.6 % (9.3-17.3); White Blood Count 10.1 T/CUMM (4-12)
[2017-03-13 06:54] LABS: Calcium 8.9 MG/DL (8.5-10.1); Osmolality,Calculated 284.1 MOS/KG (273-304); Potassium 4.1 MMOL/L (3.5-5.1)
[2017-03-13] MEDS: ALBUTEROL/IPRATROPIUM 3 ML NEB RESP TX SCH ×4 (07:44→19:55)
[2017-03-13] MEDS: BUDESONIDE 0.25 MG/2 ML NEB RESP TX SCH ×2 (07:44→19:55)
[2017-03-13] MEDS: MEGESTROL 400 MG/10 ML UDCUP PO SCH ×2 (08:48→21:04)
[2017-03-13] MEDS: FAMOTIDINE 20 MG TABLET PO SCH ×2 (08:48→21:04)
[2017-03-13] MEDS: ATENOLOL 25 MG TABLET PO SCH (08:49)
[2017-03-13] MEDS: SUCRALFATE 1 GM TABLET PO SCH ×4 (08:49→21:04)
[2017-03-13] MEDS: methylPREDNISolone SOD SUC 40 MG/1 ML VIAL IV SCH ×2 (08:49→21:04)
[2017-03-13] MEDS: DOCUSATE SODIUM 100 MG CAPSULE PO SCH ×2 (08:49→21:04)
[2017-03-13] MEDS: BENZONATATE 100 MG CAPSULE PO SCH ×3 (08:49→21:04)
[2017-03-13] MEDS: CETIRIZINE 10 MG TABLET PO SCH (08:49)
--- NOTE | 2017-03-13 10:25 | Pulmonology Progress Note ---
Pulmonary - PN: Subj Interval history: Patient is an 86-year-old white lady that has a history of bronchiectasis and bronchitis and came in with acute exacerbation. She has had Mycobacterium avium in the past. She had a bronchoscope this week and has Pseudomonas growing out of the washings. She says she is feeling better with less cough and congestion. She had a fairly good night. She is not having that much trouble with her breathing at present. Overall she says she is feeling better and doing more activity. Exam (Progress Note) - Constitutional Vitals: Period Temp Pulse Resp BP Sys/Vaughn Pulse Ox Last 24 Hr 97.8 F-98.7 F 66-85 16-18 121-135/48-72 95-99 Exam: General appearance: normal weight, no acute distress, she is sitting up eating breakfast. - Head Head exam: Present: normal inspection, normocephalic - Eye Eye exam: Present: EOMI. Absent: scleral icterus Pupils: Present: KIKO - ENT ENT exam: Present: normal exam - Neck Neck exam: Absent: lymphadenopathy, thyromegaly - Respiratory Respiratory exam: Present: Her lungs have fair breath sounds bilaterally and she has some slight crackles in the right base. She is not wheezing now. - Cardiovascular Cardiovascular exam: Present: regular rate and rhythm. Absent: gallop, systolic murmur - GI/Abdominal GI/Abdominal exam: Present: normal bowel sounds, soft. Absent: organomegaly, tenderness - Extremities Exam Extremities exam: Absent: calf tenderness, edema, no signs of phlebitis - Neurological Exam Neurological exam: Present: alert, oriented X3, CN II-XII intact - Psychiatric Psychiatric exam: Present: normal affect - Skin Skin exam: Present: warm, dry Results - Labs CBC & BMP: 03/13/17 06:15 03/13/17 06:15 Assessment and Plan (1) COPD exacerbation Status: Acute Assessment and plan: Patient is feeling better and her breathing is better. She will continue with her vigorous respiratory therapy. Overall she appears stable. Current Visit: Yes (2) Bronchiectasis Status: Chronic Assessment and plan: The patient has grown Pseudomonas out of the washings. Will adjust antibiotics. Her cough and congestion are improving. Current Visit: Yes Qualifiers: Bronchiectasis type: with acute lower respiratory infection Qualified Code( s): J47.0 - Bronchiectasis with acute lower respiratory infection (3) History of Mycobacterium avium intracellulare infection Status: Chronic Assessment and plan: So far her smears are negative for Mycobacterium. Current Visit: Yes Specialty Discharge - Follow Up or Referrals
[2017-03-13] MEDS: CHOLECALCIFEROL 1,000 UNIT TABLET PO SCH (11:50)
[2017-03-13] MEDS: MULTIVITAMIN (CENTRUM) TABLET PO SCH (11:50)
--- NOTE | 2017-03-13 15:52 | Family Practice Progress Note ---
Family Practice - PN: Subj Interval history: Patient is resting well. Still has intermittent cough but denies any new complaints. Her vitals remained stable. Her a.m. lab studies are stable. Her bronchial cultures are positive for pseudomonas aeruginosa which is sensitive to Fortaz. Lung swenson are clear to auscultation at present. Will have patient increase activity and continue present treatment plan 03/13/17 -patient continues to slowly improve. Still has moderate cough at times. States she becomes weak when she stands up. Admits that she has not been sitting up or standing much. Her a.m. vitals and labs are stable. No new problems identified. Her lung swenson are clear to auscultation at present. Will encourage patient to increase activity and hopefully can begin discharge planning soon Exam (Progress Note) - Constitutional Vitals: Period Temp Pulse Resp BP Sys/Vaughn Pulse Ox Last 24 Hr 97 F-98.7 F 66-86 16-18 122-135/51-72 94-98 Results - Labs CBC & BMP: 03/13/17 06:15 03/13/17 06:15 Quality Measures - Stroke Symptom Onset Unknown: No Specialty Discharge - Follow Up or Referrals
[2017-03-13] MEDS: AZITHROMYCIN INJ 250 MG in SODIUM CHLORIDE 0.9% 250 ML IV SCH (15:54)
[2017-03-13] MEDS: ENOXAPARIN 40 MG/0.4 ML SYRINGE SUBCUT SCH (21:03)
[2017-03-14 05:51] LABS: Hematocrit 34.9 VOL% (35.7-47.0); Hemoglobin 11.5 GM/DL (12.0-16.0); Immature Granulocytes % 0.9 %; Immature Granulocytes Absolute 0.09 #; Lymphocytes # 1.8 10*3/uL (1.4-4.0); Lymphocytes % 16.7 % (21.3-54.2); Mean Corpuscular Hemoglobin 29 PG (27-34); Mean Corpuscular Volume 87.7 FL (87-102); Monocytes # 0.4 10*3/uL (0.11-0.8); Monocytes % 3.6 % (1.7-12.7); Neutrophils # 8.2 10*3/uL (1.4-7.4); Neutrophils % 78.8 % (38.7-73.9); Platelet Count 427 T/CUMM (130-400); Red Blood Count 3.98 MC/CUMM (3.8-5.5); Red Cell Distribution Width 15.6 % (9.3-17.3); White Blood Count 10.5 T/CUMM (4-12)
[2017-03-14 06:30] LABS: Calcium 8.9 MG/DL (8.5-10.1); Potassium 4.3 MMOL/L (3.5-5.1)
[2017-03-14] MEDS: BUDESONIDE 0.25 MG/2 ML NEB RESP TX SCH ×2 (08:00→19:10)
[2017-03-14] MEDS: ALBUTEROL/IPRATROPIUM 3 ML NEB RESP TX SCH ×4 (08:00→19:10)
[2017-03-14] MEDS: ATENOLOL 25 MG TABLET PO SCH (08:24)
[2017-03-14] MEDS: BENZONATATE 100 MG CAPSULE PO SCH ×3 (08:24→20:44)
[2017-03-14] MEDS: SUCRALFATE 1 GM TABLET PO SCH ×4 (08:24→20:45)
[2017-03-14] MEDS: CETIRIZINE 10 MG TABLET PO SCH (08:24)
[2017-03-14] MEDS: methylPREDNISolone SOD SUC 40 MG/1 ML VIAL IV SCH ×2 (08:24→20:43)
[2017-03-14] MEDS: FAMOTIDINE 20 MG TABLET PO SCH ×2 (08:24→20:44)
[2017-03-14] MEDS: DOCUSATE SODIUM 100 MG CAPSULE PO SCH ×2 (08:25→20:44)
[2017-03-14] MEDS: MEGESTROL 400 MG/10 ML UDCUP PO SCH ×2 (08:29→20:44)
--- NOTE | 2017-03-14 09:28 | Pulmonology Progress Note ---
Pulmonary - PN: Subj Interval history: This 86-year-old white female came in with exacerbation of her chronic bronchitis. She has bronchiectasis and has been treated chronically with Zithromax. She has a remote history of atypical TB with Mycobacterium avium. She is set up for bronchoscopy this morning. 03/10/2017 patient is feeling better today. We cleaned out a good bit of secretions yesterday. She has infected bronchiectasis. Cultures will be 2-3 weeks coming out as far as M avium is concerned. The negative smears do not necessarily rule out active disease. However would not start her back on full treatment for that at this time. 03/11/2017 bronchial washings are showing cultures for gram-negative rods. We do not have the final identification or sensitivity. Smears for AFB were negative. I will add Merrem. She is likely to have a resistant type gram- negative urban. Adjust antibiotics according to sensitivities when they come out. This is infected bronchiectasis. 03/14/2017 patient has Pseudomonas bronchopneumonia. Also infected bronchiectasis. She is now on Fortaz. She needs at least 2 more days of this. That would give her 5 days of antibiotics to cover the Pseudomonas. There is nothing that we can give her by mouth to cover this that she is not allergic to. shoot for Tuesday discharge. Exam (Progress Note) - Constitutional Vitals: Period Temp Pulse Resp BP Sys/Vaughn Pulse Ox Last 24 Hr 97 F-99.5 F 68-95 16-18 122-142/57-68 94-98 Exam: Patient's alert and afebrile. Pupils react to light. Throat is clear. Neck supple no bruits. Chest reveals a few basilar rhonchi bilaterally as well as over the right middle lobe and lingula. Overall lungs sound much better. Heart normal rate and rhythm no murmurs. Abdomen soft nontender no masses. Extremities no clubbing cyanosis edema. Calves nontender. Results - Labs CBC & BMP: 03/14/17 04:37 03/14/17 04:37 Lab Results: I have reviewed the past 24 hour labs Assessment and Plan (1) COPD exacerbation Status: Acute Assessment and plan: Treat with empiric antibiotics and steroids. She has been on 3 different rounds of oral antibiotics I think we should use broad-spectrum ones. Do need cultures for bacteria and AFB. I will plan bronchoscopy in the morning to obtain those 03/09/2017 continuing antibiotics and steroids as well as bronchodilators. Will check cultures from bronchoscopy when they are available. That would probably be Tuesday. 03/10/2017 continuing broad-spectrum antibiotics and steroids. Check cultures tomorrow. Probably can start reducing steroids then 03/11/2017 on low-dose steroids and bronchodilators. Primarily getting antibiotics for infected bronchiectasis with exacerbation of COPD. 03/14/2017 wean off steroids. Needs IV Fortaz for 2 more days at least. Current Visit: Yes (2) Bronchiectasis Status: Chronic Assessment and plan: Long history of documented bronchiectasis. The Zithromax Tuesday is to decrease the number of bacterial infections associated with that. 03/09/2017 needs broad-spectrum antibiotics for this. 03/10/2017 continuing broad-spectrum antibiotics for infected bronchiectasis. Hopefully we will get something from the cultures tomorrow. 03/11/2017 check cultures tomorrow with sensitivities. 03/14/2017 infected bronchiectasis with Pseudomonas. On appropriate treatment. Again needs at least 2 more days Current Visit: Yes Qualifiers: Bronchiectasis type: with acute lower respiratory infection Qualified Code( s): J47.0 - Bronchiectasis with acute lower respiratory infection (3) History of Mycobacterium avium intracellulare infection Status: Chronic Assessment and plan: Need to see if there is active infection. 03/09/2017 check bronchial lavage for AFB. 03/10/2017 smears for AFB were negative. However with Mycobacterium avium it is often the case that the smears are negative and cultures clipper and turner positive. See no reason to change treatment until we get that report out. 03/11/2017 likely does not have active Mycobacterium avium. However a culture could grow it out in 2-3 weeks. We will review at that time 03/14/2017 no evidence of active M avium. Check cultures in 2 or 3 weeks. Current Visit: Yes Specialty Discharge - Follow Up or Referrals
[2017-03-14] MEDS: CHOLECALCIFEROL 1,000 UNIT TABLET PO SCH (11:06)
[2017-03-14] MEDS: MULTIVITAMIN (CENTRUM) TABLET PO SCH (11:06)
[2017-03-14] MEDS: AZITHROMYCIN INJ 250 MG in SODIUM CHLORIDE 0.9% 250 ML IV SCH (15:48)
--- NOTE | 2017-03-14 20:27 | Internal Med Progress Note ---
Assessment and Plan (1) COPD exacerbation Status: Acute Current Visit: Yes (2) Bronchiectasis Status: Chronic Current Visit: Yes Qualifiers: Bronchiectasis type: with acute lower respiratory infection Qualified Code( s): J47.0 - Bronchiectasis with acute lower respiratory infection (3) History of Mycobacterium avium intracellulare infection Status: Chronic Current Visit: Yes (4) Fever Status: Resolved Current Visit: Yes (5) Generalized weakness Status: Chronic Current Visit: Yes (6) Leukocytosis Status: Acute Current Visit: Yes (7) Loss of appetite Status: Chronic Current Visit: Yes (8) Malaise and fatigue Status: Chronic Current Visit: Yes Internal Medicine - PN: Subj Interval history: Ms. Petre is a 86 year old female with history of COPD, restrictive lung disease, bronchiectasis and on Azithromycin three days weekly, Mycobacterium avium intracellulare, allergic rhinitis, acid reflux, HTN, low magnesium, IBS, anemia iron deficiency and chronic illness, poor appetite, Vit D deficiency, who presented in clinic last week with fever and malaise, upper respiratory symptoms, cough. She continues to feel better and is post-bronchoscopy. Cultures pending but no mycobacterium apparent. WBC improved today and afebrile. Will order physical therapy for tomorrow. Mar 5: She continues to feel better and is coughing up more sputum. Awaiting culture results. Mar 6: She has Pseudomonas infection/bronchiectasis and is now on Meropenem as of today. Overall, she is feeling better. Will stay over the weekend. Very sick upon admission. Mar 9: She is steadily improving and will need IV antibiotic a few more days. Acute on chronic bronchiectasis. Exam (Progress Note) - Constitutional Vitals: Period Temp Pulse Resp BP Sys/Vaughn Pulse Ox Last 24 Hr 97.6 F-99.5 F 67-95 16-18 125-142/54-68 94-99 General appearance: no acute distress - Respiratory Respiratory exam: Present: clear to auscultation bilaterally - Cardiovascular Cardiovascular exam: Present: regular rate and rhythm - GI/Abdominal GI/Abdominal exam: Present: soft. Absent: tenderness - Extremities Exam Extremities exam: Absent: edema - Neurological Exam Neurological exam: Present: alert, oriented X3 - Psychiatric Psychiatric exam: Present: normal mood - Skin Skin exam: Present: warm, dry Results - Labs CBC & BMP: 03/14/17 04:37 10/09/17 04:37 Quality Measures - Stroke Symptom Onset Unknown: No Specialty Discharge - Follow Up or Referrals
[2017-03-14] MEDS: ENOXAPARIN 40 MG/0.4 ML SYRINGE SUBCUT SCH (20:44)
[2017-03-15] MEDS: ALBUTEROL/IPRATROPIUM 3 ML NEB RESP TX SCH ×4 (07:01→18:40)
[2017-03-15] MEDS: BUDESONIDE 0.25 MG/2 ML NEB RESP TX SCH ×2 (07:01→18:40)
[2017-03-15] MEDS: BENZONATATE 100 MG CAPSULE PO SCH ×3 (08:07→20:50)
[2017-03-15] MEDS: DOCUSATE SODIUM 100 MG CAPSULE PO SCH ×2 (08:07→20:50)
[2017-03-15] MEDS: CETIRIZINE 10 MG TABLET PO SCH (08:07)
[2017-03-15] MEDS: FAMOTIDINE 20 MG TABLET PO SCH ×2 (08:07→20:50)
[2017-03-15] MEDS: ATENOLOL 25 MG TABLET PO SCH (08:07)
[2017-03-15] MEDS: SUCRALFATE 1 GM TABLET PO SCH ×4 (08:07→20:50)
[2017-03-15] MEDS: methylPREDNISolone SOD SUC 40 MG/1 ML VIAL IV SCH ×2 (08:08→20:50)
[2017-03-15] MEDS: MEGESTROL 400 MG/10 ML UDCUP PO SCH ×2 (08:08→20:50)
--- NOTE | 2017-03-15 08:35 | Pulmonology Progress Note ---
Pulmonary - PN: Subj Interval history: This 86-year-old white female came in with exacerbation of her chronic bronchitis. She has bronchiectasis and has been treated chronically with Zithromax. She has a remote history of atypical TB with Mycobacterium avium. She is set up for bronchoscopy this morning. 03/10/2017 patient is feeling better today. We cleaned out a good bit of secretions yesterday. She has infected bronchiectasis. Cultures will be 2-3 weeks coming out as far as M avium is concerned. The negative smears do not necessarily rule out active disease. However would not start her back on full treatment for that at this time. 03/11/2017 bronchial washings are showing cultures for gram-negative rods. We do not have the final identification or sensitivity. Smears for AFB were negative. I will add Merrem. She is likely to have a resistant type gram- negative urban. Adjust antibiotics according to sensitivities when they come out. This is infected bronchiectasis. 03/14/2017 patient has Pseudomonas bronchopneumonia. Also infected bronchiectasis. She is now on Fortaz. She needs at least 2 more days of this. That would give her 5 days of antibiotics to cover the Pseudomonas. There is nothing that we can give her by mouth to cover this that she is not allergic to. shoot for Tuesday discharge. 03/15/2017 patient feeling better. Should be able to go home tomorrow. Would put her back on Zithromax 250 mg Tuesday. I will see her in about 2 weeks. Exam (Progress Note) - Constitutional Vitals: Period Temp Pulse Resp BP Sys/Vaughn Pulse Ox Last 24 Hr 97.6 F-98.1 F 68-95 16-20 123-133/50-59 94-99 Exam: Patient's alert and afebrile. Pupils react to light. Throat is clear. Neck supple no bruits. Chest reveals a few basilar rhonchi bilaterally as well as over the right middle lobe and lingula. Overall lungs sound much better. Heart normal rate and rhythm no murmurs. Abdomen soft nontender no masses. Extremities no clubbing cyanosis edema. Calves nontender. Little change from yesterday Results - Labs CBC & BMP: 03/14/17 04:37 03/14/17 04:37 Lab Results: I have reviewed the past 24 hour labs Assessment and Plan (1) COPD exacerbation Status: Acute Assessment and plan: Treat with empiric antibiotics and steroids. She has been on 3 different rounds of oral antibiotics I think we should use broad-spectrum ones. Do need cultures for bacteria and AFB. I will plan bronchoscopy in the morning to obtain those 03/09/2017 continuing antibiotics and steroids as well as bronchodilators. Will check cultures from bronchoscopy when they are available. That would probably be Tuesday. 03/10/2017 continuing broad-spectrum antibiotics and steroids. Check cultures tomorrow. Probably can start reducing steroids then 03/11/2017 on low-dose steroids and bronchodilators. Primarily getting antibiotics for infected bronchiectasis with exacerbation of COPD. 03/14/2017 wean off steroids. Needs IV Fortaz for 2 more days at least. 03/15/2017 should be okay discharging after antibiotics tomorrow. Current Visit: Yes (2) Bronchiectasis Status: Chronic Assessment and plan: Long history of documented bronchiectasis. The Zithromax Tuesday is to decrease the number of bacterial infections associated with that. 03/09/2017 needs broad-spectrum antibiotics for this. 03/10/2017 continuing broad-spectrum antibiotics for infected bronchiectasis. Hopefully we will get something from the cultures tomorrow. 03/11/2017 check cultures tomorrow with sensitivities. 03/14/2017 infected bronchiectasis with Pseudomonas. On appropriate treatment. Again needs at least 2 more days 03/15/2017 continue Zithromax Tuesday at home 250 mg. This is for prevention of future infected bronchiectasis episodes. Should be able to discharge tomorrow after getting Fortaz. Current Visit: Yes Qualifiers: Bronchiectasis type: with acute lower respiratory infection Qualified Code( s): J47.0 - Bronchiectasis with acute lower respiratory infection (3) History of Mycobacterium avium intracellulare infection Status: Chronic Assessment and plan: Need to see if there is active infection. 03/09/2017 check bronchial lavage for AFB. 03/10/2017 smears for AFB were negative. 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 See no reason to change treatment until we get that report out. 03/11/2017 likely does not have active Mycobacterium avium. However a culture could grow it out in 2-3 weeks. We will review at that time 03/14/2017 no evidence of active M avium. Check cultures in 2 or 3 weeks. 03/15/2017 does not appear to be active. However cultures are still pending, usually take 2 or 3 weeks. Current Visit: Yes Specialty Discharge - Follow Up or Referrals
[2017-03-15 08:38] LABS: Basophils % 0.1 % (0.0-0.8); Hemoglobin 12.1 GM/DL (12.0-16.0); Immature Granulocytes % 0.8 %; Lymphocytes # 2.9 10*3/uL (1.4-4.0); Lymphocytes % 22.6 % (21.3-54.2); Mean Corpuscular HGB Conc 32.7 GM/DL (32-36); Mean Corpuscular Hemoglobin 29 PG (27-34); Mean Corpuscular Volume 89.6 FL (87-102); Mean Platelet Volume 9.3 FL (9.6-12.0); Monocytes # 0.8 10*3/uL (0.11-0.8); Monocytes % 6.6 % (1.7-12.7); Neutrophils # 8.8 10*3/uL (1.4-7.4); Neutrophils % 69.9 % (38.7-73.9); Platelet Count 471 T/CUMM (130-400); Red Blood Count 4.13 MC/CUMM (3.8-5.5); White Blood Count 12.6 T/CUMM (4-12)
[2017-03-15] MEDS: MULTIVITAMIN (CENTRUM) TABLET PO SCH (11:49)
[2017-03-15] MEDS: CHOLECALCIFEROL 1,000 UNIT TABLET PO SCH (11:49)
[2017-03-15] MEDS: AZITHROMYCIN INJ 250 MG in SODIUM CHLORIDE 0.9% 250 ML IV SCH (16:26)
--- NOTE | 2017-03-15 18:56 | Internal Med Progress Note ---
Assessment and Plan (1) COPD exacerbation Status: Acute Current Visit: Yes (2) Bronchiectasis Status: Chronic Current Visit: Yes Qualifiers: Bronchiectasis type: with acute lower respiratory infection Qualified Code( s): J47.0 - Bronchiectasis with acute lower respiratory infection (3) History of Mycobacterium avium intracellulare infection Status: Chronic Current Visit: Yes (4) Fever Status: Resolved Current Visit: Yes (5) Generalized weakness Status: Chronic Current Visit: Yes (6) Leukocytosis Status: Resolved Current Visit: Yes (7) Loss of appetite Status: Chronic Current Visit: Yes (8) Malaise and fatigue Status: Chronic Current Visit: Yes Internal Medicine - PN: Subj Interval history: Ms. Peter is a 86 year old female with history of COPD, restrictive lung disease, bronchiectasis and on Azithromycin three days weekly, Mycobacterium avium intracellulare, allergic rhinitis, acid reflux, HTN, low magnesium, IBS, anemia iron deficiency and chronic illness, poor appetite, Vit D deficiency, who presented in clinic last week with fever and malaise, upper respiratory symptoms, cough. She continues to feel better and is post-bronchoscopy. Cultures pending but no mycobacterium apparent. WBC improved today and afebrile. Will order physical therapy for tomorrow. Mar 10: She continues to feel better and is coughing up more sputum. Awaiting culture results. Mar 11: She has Pseudomonas infection/bronchiectasis and is now on Meropenem as of today. Overall, she is feeling better. Will stay over the weekend. Very sick upon admission. Mar 14: She is steadily improving and will need IV antibiotic a few more days. Acute on chronic bronchiectasis. Mar 15: continues to improve, but weak; likely to hold discharge until ; undergoing PT here at hospital Exam (Progress Note) - Constitutional Vitals: Period Temp Pulse Resp BP Sys/Vaughn Pulse Ox Last 24 Hr 96.9 F-98.1 F 71-95 16-20 120-136/50-68 93-99 General appearance: no acute distress - Respiratory Respiratory exam: Present: clear to auscultation bilaterally (some coarseness to breath sounds but moving air reasonably well) - Cardiovascular Cardiovascular exam: Present: regular rate and rhythm - GI/Abdominal GI/Abdominal exam: Present: soft. Absent: tenderness - Extremities Exam Extremities exam: Absent: edema - Neurological Exam Neurological exam: Present: alert, oriented X3 - Psychiatric Psychiatric exam: Present: normal mood - Skin Skin exam: Present: warm, dry Results - Labs CBC & BMP: 03/15/17 08:21 03/14/17 04:37 Quality Measures - Stroke Symptom Onset Unknown: No Specialty Discharge - Follow Up or Referrals
[2017-03-15] MEDS: ENOXAPARIN 40 MG/0.4 ML SYRINGE SUBCUT SCH ×2 (20:46→20:50)
[2017-03-15] MEDS: MUPIROCIN 2% OINT 22 GM TUBE TOP SCH (20:50)
[2017-03-16 05:18] LABS: Basophils % 0.1 % (0.0-0.8); Hematocrit 32.8 VOL% (35.7-47.0); Hemoglobin 10.9 GM/DL (12.0-16.0); Immature Granulocytes % 0.7 %; Immature Granulocytes Absolute 0.07 #; Lymphocytes # 1.7 10*3/uL (1.4-4.0); Lymphocytes % 16.4 % (21.3-54.2); Mean Corpuscular HGB Conc 33.2 GM/DL (32-36); Mean Corpuscular Hemoglobin 29 PG (27-34); Mean Corpuscular Volume 87.7 FL (87-102); Mean Platelet Volume 9.6 FL (9.6-12.0); Monocytes # 0.4 10*3/uL (0.11-0.8); Neutrophils # 8.4 10*3/uL (1.4-7.4); Neutrophils % 78.8 % (38.7-73.9); Platelet Count 406 T/CUMM (130-400); Red Blood Count 3.74 MC/CUMM (3.8-5.5); Red Cell Distribution Width 16.1 % (9.3-17.3); White Blood Count 10.6 T/CUMM (4-12)
[2017-03-16 05:54] LABS: Calcium 8.9 MG/DL (8.5-10.1); Potassium 4.2 MMOL/L (3.5-5.1)
[2017-03-16] MEDS: BUDESONIDE 0.25 MG/2 ML NEB RESP TX SCH ×2 (07:31→19:13)
[2017-03-16] MEDS: ALBUTEROL/IPRATROPIUM 3 ML NEB RESP TX SCH ×4 (07:31→19:13)
[2017-03-16] MEDS: SUCRALFATE 1 GM TABLET PO SCH ×4 (08:59→21:25)
[2017-03-16] MEDS: MUPIROCIN 2% OINT 22 GM TUBE TOP SCH ×2 (09:00→21:17)
[2017-03-16] MEDS: MEGESTROL 400 MG/10 ML UDCUP PO SCH ×2 (09:00→21:21)
[2017-03-16] MEDS: methylPREDNISolone SOD SUC 40 MG/1 ML VIAL IV SCH ×2 (09:00→21:18)
[2017-03-16] MEDS: FAMOTIDINE 20 MG TABLET PO SCH ×2 (09:00→21:17)
[2017-03-16] MEDS: DOCUSATE SODIUM 100 MG CAPSULE PO SCH ×2 (09:00→21:17)
[2017-03-16] MEDS: ATENOLOL 25 MG TABLET PO SCH (09:01)
[2017-03-16] MEDS: BENZONATATE 100 MG CAPSULE PO SCH ×3 (09:01→21:17)
[2017-03-16] MEDS: CETIRIZINE 10 MG TABLET PO SCH (09:01)
--- NOTE | 2017-03-16 09:29 | Pulmonology Progress Note ---
Pulmonary - PN: Subj Interval history: This 86-year-old white female came in with exacerbation of her chronic bronchitis. She has bronchiectasis and has been treated chronically with Zithromax. She has a remote history of atypical TB with Mycobacterium avium. She is set up for bronchoscopy this morning. 03/10/2017 patient is feeling better today. We cleaned out a good bit of secretions yesterday. She has infected bronchiectasis. Cultures will be 2-3 weeks coming out as far as M avium is concerned. The negative smears do not necessarily rule out active disease. However would not start her back on full treatment for that at this time. 03/11/2017 bronchial washings are showing cultures for gram-negative rods. We do not have the final identification or sensitivity. Smears for AFB were negative. I will add Merrem. She is likely to have a resistant type gram- negative urban. Adjust antibiotics according to sensitivities when they come out. This is infected bronchiectasis. 03/14/2017 patient has Pseudomonas bronchopneumonia. Also infected bronchiectasis. She is now on Fortaz. She needs at least 2 more days of this. That would give her 5 days of antibiotics to cover the Pseudomonas. There is nothing that we can give her by mouth to cover this that she is not allergic to. shoot for Tuesday discharge. 03/15/2017 patient feeling better. Should be able to go home tomorrow. Would put her back on Zithromax 250 mg Tuesday. I will see her in about 2 weeks. 03/16/2017 again patient feeling well. Agree with plans. Getting more physical therapy and discharge planned for . I will follow-up in the clinic. Exam (Progress Note) - Constitutional Vitals: Period Temp Pulse Resp BP Sys/Vaughn Pulse Ox Last 24 Hr 97.7 F-98.2 F 73-89 16-20 120-136/60-73 93-99 Exam: Patient's alert and afebrile. Pupils react to light. Throat is clear. Neck supple no bruits. Chest reveals a few basilar rhonchi bilaterally as well as over the right middle lobe and lingula. Overall lungs sound much better. Heart normal rate and rhythm no murmurs. Abdomen soft nontender no masses. Extremities no clubbing cyanosis edema. Calves nontender. Results - Labs CBC & BMP: 03/16/17 04:35 03/16/17 04:35 Lab Results: I have reviewed the past 24 hour labs Assessment and Plan (1) COPD exacerbation Status: Acute Assessment and plan: Treat with empiric antibiotics and steroids. She has been on 3 different rounds of oral antibiotics I think we should use broad-spectrum ones. Do need cultures for bacteria and AFB. I will plan bronchoscopy in the morning to obtain those 03/09/2017 continuing antibiotics and steroids as well as bronchodilators. Will check cultures from bronchoscopy when they are available. That would probably be Tuesday. 03/10/2017 continuing broad-spectrum antibiotics and steroids. Check cultures tomorrow. Probably can start reducing steroids then 03/11/2017 on low-dose steroids and bronchodilators. Primarily getting antibiotics for infected bronchiectasis with exacerbation of COPD. 03/14/2017 wean off steroids. Needs IV Fortaz for 2 more days at least. 03/15/2017 should be okay discharging after antibiotics tomorrow. 03/16/2017 COPD controlled with current medicines Current Visit: Yes (2) Bronchiectasis Status: Chronic Assessment and plan: Long history of documented bronchiectasis. The Zithromax Tuesday is to decrease the number of bacterial infections associated with that. 03/09/2017 needs broad-spectrum antibiotics for this. 03/10/2017 continuing broad-spectrum antibiotics for infected bronchiectasis. Hopefully we will get something from the cultures tomorrow. 03/11/2017 check cultures tomorrow with sensitivities. 03/14/2017 infected bronchiectasis with Pseudomonas. On appropriate treatment. Again needs at least 2 more days 03/15/2017 continue Zithromax Tuesday at home 250 mg. This is for prevention of future infected bronchiectasis episodes. Should be able to discharge tomorrow after getting Fortaz. 03/16/2017 continue home Zithromax dose when discharged Current Visit: Yes Qualifiers: Bronchiectasis type: with acute lower respiratory infection Qualified Code( s): J47.0 - Bronchiectasis with acute lower respiratory infection (3) History of Mycobacterium avium intracellulare infection Status: Chronic Assessment and plan: Need to see if there is active infection. 03/09/2017 check bronchial lavage for AFB. 03/10/2017 smears for AFB were negative. However with Mycobacterium avium it is often the case that the smears are negative and cultures boot turner positive. See no reason to change treatment until we get that report out. 03/11/2017 likely does not have active Mycobacterium avium. However a culture could grow it out in 2-3 weeks. We will review at that time 03/14/2017 no evidence of active M avium. Check cultures in 2 or 3 weeks. 03/15/2017 does not appear to be active. However cultures are still pending, usually take 2 or 3 weeks. 03/16/2017 no evidence of any active infection. I will review her AFB cultures when she returns to clinic Current Visit: Yes Specialty Discharge - Follow Up or Referrals
[2017-03-16] MEDS: MULTIVITAMIN (CENTRUM) TABLET PO SCH (11:45)
[2017-03-16] MEDS: CHOLECALCIFEROL 1,000 UNIT TABLET PO SCH (11:45)
[2017-03-16] MEDS: AZITHROMYCIN INJ 250 MG in SODIUM CHLORIDE 0.9% 250 ML IV SCH (16:46)
--- NOTE | 2017-03-16 21:09 | Internal Med Progress Note ---
Assessment and Plan (1) COPD exacerbation Status: Acute Current Visit: Yes (2) Bronchiectasis Status: Chronic Current Visit: Yes Qualifiers: Bronchiectasis type: with acute lower respiratory infection Qualified Code( s): J47.0 - Bronchiectasis with acute lower respiratory infection (3) History of Mycobacterium avium intracellulare infection Status: Chronic Current Visit: Yes (4) Fever Status: Resolved Current Visit: Yes (5) Generalized weakness Status: Chronic Current Visit: Yes (6) Leukocytosis Status: Resolved Current Visit: Yes (7) Loss of appetite Status: Chronic Current Visit: Yes (8) Malaise and fatigue Status: Chronic Current Visit: Yes Internal Medicine - PN: Subj Interval history: Ms. Peter is a 86 year old female with history of COPD, restrictive lung disease, bronchiectasis and on Azithromycin three days weekly, Mycobacterium avium intracellulare, allergic rhinitis, acid reflux, HTN, low magnesium, IBS, anemia iron deficiency and chronic illness, poor appetite, Vit D deficiency, who presented in clinic last week with fever and malaise, upper respiratory symptoms, cough. She continues to feel better and is post-bronchoscopy. Cultures pending but no mycobacterium apparent. WBC improved today and afebrile. Will order physical therapy for tomorrow. Mar 10: She continues to feel better and is coughing up more sputum. Awaiting culture results. Mar 11: She has Pseudomonas infection/bronchiectasis and is now on Meropenem as of today. Overall, she is feeling better. Will stay over the weekend. Very sick upon admission. Mar 14: She is steadily improving and will need IV antibiotic a few more days. Acute on chronic bronchiectasis. Mar 15: continues to improve, but weak; likely to hold discharge until ; undergoing PT here at hospital Mar 11: she felt weak on left side today in PT; she has access to a cane at home, but she may need a walker; will have PT make a recommendation. Exam (Progress Note) - Constitutional Vitals: Period Temp Pulse Resp BP Sys/Vaughn Pulse Ox Last 24 Hr 97.3 F-98.4 F 73-101 16-20 110-146/56-65 93-99 Exam: General appearance: no acute distress - Respiratory Respiratory exam: Present: improved breath sounds - Cardiovascular Cardiovascular exam: Present: regular rate and rhythm - GI/Abdominal GI/Abdominal exam: Present: soft. Absent: tenderness - Extremities Exam Extremities exam: Absent: edema - Neurological Exam Neurological exam: Present: alert, oriented X3 - Psychiatric Psychiatric exam: Present: normal mood - Skin Skin exam: Present: warm, dry Results - Labs CBC & BMP: 03/16/17 04:35 03/16/17 04:35 Quality Measures - Stroke Symptom Onset Unknown: No Specialty Discharge - Follow Up or Referrals
[2017-03-16] MEDS: ENOXAPARIN 40 MG/0.4 ML SYRINGE SUBCUT SCH (21:19)
--- NOTE | 2017-03-16 21:25 | Discharge Summary ---
Hospital Course - Hospital Course Hospital Course: Ms. Peter is a 86 year old female with history of COPD, restrictive lung disease, bronchiectasis and on Azithromycin three days weekly, Mycobacterium avium intracellulare, allergic rhinitis, acid reflux, HTN, low magnesium, IBS, anemia iron deficiency and chronic illness, poor appetite, Vit D deficiency, who presented in clinic last week with fever and malaise, upper respiratory symptoms, cough. She was found to have inflamed bronchiectasis with Pseudomonas and given appropriate IV antibiotics for the remainder of the week. She will be discharged to home. Will have PT see her prior to discharge because of weakness. She would benefit from Home Health. Diagnosis - Discharge Diagnosis (1) COPD exacerbation Status: Resolved (2) Bronchiectasis Status: Chronic (3) History of Mycobacterium avium intracellulare infection Status: Chronic (4) Fever Status: Resolved (5) Generalized weakness Status: Chronic (6) Leukocytosis Status: Resolved (7) Loss of appetite Status: Chronic (8) Malaise and fatigue Status: Chronic Specialty Discharge - Follow Up or Referrals Discharge Plan - Discharge Data Disposition: Disch To Home/Self Care Condition at Discharge: Stable Discharge Diet: regular diet Activity: increase activity as tolerated - Discharge Medications New Benzonatate [Tessalon] 100 mg PO TID #20 capsule Cetirizine Tab [ZyrTEC Tab] 10 mg PO DAILY tablet Docusate Sodium Cap [Colace Cap] 100 mg PO BID capsule Magnesium Hydroxide Susp [Milk of Magnesia] 30 ml PO DAILY PRN PRN Reason: Constipation Mupirocin 2% Oint [Bactroban 2% Oint] 1 applic TOP BID applic Acetaminophen Tab [Tylenol Tab] 650 mg PO Q6H PRN tablet PRN Reason: Fever > 100.4 Or Headache Skin Healing Oint (Aquaphor) [Aquaphor] 1 applic TOP PRN PRN applic PRN Reason: Dry Skin Continue Omeprazole 20 mg PO 1900 Multivitamin [Multivitamins] 1 each PO 1200 Azithromycin Tab [Zithromax Tab] 250 mg PO DIRECTED #0 Ipratropium/Albuterol Inhaler [Combivent Respimat Inhaler] 1 puff INH BID Atenolol 25 mg PO 1200 Sucralfate Tab [Carafate Tab] 1 gm PO ACHS Tiotropium Br/Olodaterol HCl [Stiolto Respimat Inhal [place]] 2 puffs IH 1200 Changed Cholecalciferol (Vitamin D3) [Vitamin D3] 5,000 unit PO QOTHER DAY #0 - Follow Up or Referral - Forms/Instructions Instructions: Chronic Obstructive Pulmonary Disease (GEN), Bronchiectasis (GEN) , Leukocytosis (GEN) Exam - Constitutional Vitals: Period Temp Pulse Resp BP Sys/Vaughn Pulse Ox Last 24 Hr 97.3 F-98.4 F 73-101 16-20 110-146/56-65 93-99 Exam: General appearance: no acute distress - Respiratory Respiratory exam: Present: improved breath sounds - Cardiovascular Cardiovascular exam: Present: regular rate and rhythm - GI/Abdominal GI/Abdominal exam: Present: soft. Absent: tenderness - Extremities Exam Extremities exam: Absent: edema - Neurological Exam Neurological exam: Present: alert, oriented X3 - Psychiatric Psychiatric exam: Present: normal mood - Skin Skin exam: Present: warm, dry Discharge Results Procedures and tests throughout hospitalization: Pending Orders 03/09/17 07:50 AFB Culture/Smears Routine Fungal Culture w/ Prep Routine 03/09/17 07:57 Cytology Request Routine Labs on day of discharge: Labs from last 24 hours 03/16/17 03/16/17 04:35 04:35 WBC 10.6 RBC 3.74 L Hgb 10.9 L Hct 32.8 L MCV 87.7 MCH 29 MCHC 33.2 RDW 16.1 Plt Count 406 H MPV 9.6 Neut % (Auto) 78.8 H Lymph % (Auto) 16.4 L [place] % (Auto) 4.0 Eos % (Auto) 0.0 Baso % (Auto) 0.1 Neut # (Auto) 8.4 H Lymph # (Auto) 1.7 [place] # (Auto) 0.4 Eos # (Auto) 0.0 Baso # (Auto) 0.0 Immature Gran % 0.7 Nucleated RBC % 0.0 Immature Gran # 0.07 Nucleated RBCs # 0.00 Immature Plt Fraction 0.0 Sodium 143 Potassium 4.2 Chloride 109 H Carbon Dioxide 27 Anion Gap 11.2 BUN 27 H Creatinine 0.70 GFR Calculation 74 BUN/Creatinine Ratio 38.00 H Glucose 95 Calculated Osmolality 289.0 Calcium 8.9 Preliminary micro results at discharge 03/09/17 07:50 Mycobacterial Culture - Preliminary Bronchial Luis F Lavage No AFB isolated at 1 week DS: Provider Date of admission: 03/07/17 15:18 Primary care physician: Jess Akers DO Attending physician on admission: Jess Akers DO Consults: 03/07/17 15:30 Consult to Case Mgmt/Social Srvs [CONS] Routine Reason for Case Mgmt/Social Srvs: Discharge Planning 03/07/17 15:38 Consult to Physician [CONS] Routine Comment: fever; hx bronchiectasis and mycobacterium avium Consulting Provider: Yung Fitzgerald Person Notified: Verónica Date Notified: 03/07/17 Time Notified: 16:32 03/07/17 16:49 Consult to Pastoral Services [CONS] Routine Comment: Pastoral Screen: Request Quiller Operator Visit Pastoral Screen Source of Request: Patient 03/09/17 16:18 Consult to Occupational Therapy [CONS] Routine Reason for Occupational Therapy: Evaluate and Treat Consult to Physical Therapy [CONS] Routine Reason for Physical Therapy: Evaluate and Treat Discharging clinician: Jess Akers DO Expected date of discharge: 03/17/17
[2017-03-17] MEDS: BUDESONIDE 0.25 MG/2 ML NEB RESP TX SCH (07:11)
[2017-03-17] MEDS: ALBUTEROL/IPRATROPIUM 3 ML NEB RESP TX SCH (07:11)
[2017-03-17 07:48] VITALS: BP 138/69
[2017-03-17] MEDS: DOCUSATE SODIUM 100 MG CAPSULE PO SCH (08:44)
[2017-03-17] MEDS: BENZONATATE 100 MG CAPSULE PO SCH (08:44)
[2017-03-17] MEDS: SUCRALFATE 1 GM TABLET PO SCH (08:44)
[2017-03-17] MEDS: ATENOLOL 25 MG TABLET PO SCH ×2 (08:44→08:51)
[2017-03-17] MEDS: CETIRIZINE 10 MG TABLET PO SCH (08:44)
[2017-03-17] MEDS: MEGESTROL 400 MG/10 ML UDCUP PO SCH (08:44)
[2017-03-17] MEDS: methylPREDNISolone SOD SUC 40 MG/1 ML VIAL IV SCH (08:45)
[2017-03-17] MEDS: MUPIROCIN 2% OINT 22 GM TUBE TOP SCH (08:45)
[2017-03-17] MEDS: FAMOTIDINE 20 MG TABLET PO SCH (08:50)
--- NOTE | 2017-03-17 08:53 | Pulmonology Progress Note ---
Pulmonary - PN: Subj Interval history: This 86-year-old white female came in with exacerbation of her chronic bronchitis. She has bronchiectasis and has been treated chronically with Zithromax. She has a remote history of atypical TB with Mycobacterium avium. She is set up for bronchoscopy this morning. 03/10/2017 patient is feeling better today. We cleaned out a good bit of secretions yesterday. She has infected bronchiectasis. Cultures will be 2-3 weeks coming out as far as M avium is concerned. The negative smears do not necessarily rule out active disease. However would not start her back on full treatment for that at this time. 03/11/2017 bronchial washings are showing cultures for gram-negative rods. We do not have the final identification or sensitivity. Smears for AFB were negative. I will add Merrem. She is likely to have a resistant type gram- negative urban. Adjust antibiotics according to sensitivities when they come out. This is infected bronchiectasis. 03/14/2017 patient has Pseudomonas bronchopneumonia. Also infected bronchiectasis. She is now on Fortaz. She needs at least 2 more days of this. That would give her 5 days of antibiotics to cover the Pseudomonas. There is nothing that we can give her by mouth to cover this that she is not allergic to. shoot for Tuesday discharge. 03/15/2017 patient feeling better. Should be able to go home tomorrow. Would put her back on Zithromax 250 mg Tuesday. I will see her in about 2 weeks. 03/16/2017 again patient feeling well. Agree with plans. Getting more physical therapy and discharge planned for . I will follow-up in the clinic. 03/17/2017 ready for discharge. She has follow-up appointment with me in the office. Will check AFB cultures at that time. Exam (Progress Note) - Constitutional Vitals: Period Temp Pulse Resp BP Sys/Vaughn Pulse Ox Last 24 Hr 97.3 F-98.4 F 74-101 16-20 110-146/56-69 93-99 Exam: Patient's alert and afebrile. Pupils react to light. Throat is clear. Neck supple no bruits. Chest reveals a few basilar rhonchi bilaterally as well as over the right middle lobe and lingula. Overall lungs sound much better. Heart normal rate and rhythm no murmurs. Abdomen soft nontender no masses. Extremities no clubbing cyanosis edema. Calves nontender. Results - Labs CBC & BMP: 03/16/17 04:35 03/16/17 04:35 Lab Results: I have reviewed the past 24 hour labs Assessment and Plan (1) COPD exacerbation Status: Resolved Assessment and plan: Treat with empiric antibiotics and steroids. She has been on 3 different rounds of oral antibiotics I think we should use broad-spectrum ones. Do need cultures for bacteria and AFB. I will plan bronchoscopy in the morning to obtain those 03/09/2017 continuing antibiotics and steroids as well as bronchodilators. Will check cultures from bronchoscopy when they are available. That would probably be Tuesday. 03/10/2017 continuing broad-spectrum antibiotics and steroids. Check cultures tomorrow. Probably can start reducing steroids then 03/11/2017 on low-dose steroids and bronchodilators. Primarily getting antibiotics for infected bronchiectasis with exacerbation of COPD. 03/14/2017 wean off steroids. Needs IV Fortaz for 2 more days at least. 03/15/2017 should be okay discharging after antibiotics tomorrow. 03/16/2017 COPD controlled with current medicines 03/17/2017 COPD symptoms controlled. Continue current medications. Current Visit: Yes (2) Bronchiectasis Status: Chronic Assessment and plan: Long history of documented bronchiectasis. The Zithromax Tuesday is to decrease the number of bacterial infections associated with that. 03/09/2017 needs broad-spectrum antibiotics for this. 03/10/2017 continuing broad-spectrum antibiotics for infected bronchiectasis. Hopefully we will get something from the cultures tomorrow. 03/11/2017 check cultures tomorrow with sensitivities. 03/14/2017 infected bronchiectasis with Pseudomonas. On appropriate treatment. Again needs at least 2 more days 03/15/2017 continue Zithromax Tuesday at home 250 mg. This is for prevention of future infected bronchiectasis episodes. Should be able to discharge tomorrow after getting Fortaz. 03/16/2017 continue home Zithromax dose when discharged 03/17/2017 resuming Zithromax Tuesday. Current Visit: Yes Qualifiers: Bronchiectasis type: with acute lower respiratory infection Qualified Code( s): J47.0 - Bronchiectasis with acute lower respiratory infection (3) History of Mycobacterium avium intracellulare infection Status: Chronic Assessment and plan: Need to see if there is active infection. 03/09/2017 check bronchial lavage for AFB. 03/10/2017 smears for AFB were negative. However with Mycobacterium avium it is often the case that the smears are negative and cultures turnstile attendant positive. See no reason to change treatment until we get that report out. 03/11/2017 likely does not have active Mycobacterium avium. However a culture could grow it out in 2-3 weeks. We will review at that time 03/14/2017 no evidence of active M avium. Check cultures in 2 or 3 weeks. 03/15/2017 does not appear to be active. However cultures are still pending, usually take 2 or 3 weeks. 03/16/2017 no evidence of any active infection. I will review her AFB cultures when she returns to clinic 03/17/2017 will check AFB cultures on return to clinic. Current Visit: Yes Specialty Discharge - Follow Up or Referrals
== END 2017-03-17 10:47 | disposition home or self-care (01) | DRG 168 ==
LOC: N.5E 15:18
PROVIDERS: ADMIT Internal Medicine; ATTEND Internal Medicine

== ENCOUNTER 2017-05-02 10:40 | Inpatient (IN) ==
[2017-05-02] MEDS ORDERED: ACETAMINOPHEN 500 MG TABLET PO STA (12:14)
[2017-05-02] MEDS ORDERED: SODIUM CHLORIDE 0.9% 500 ML IV STA (12:14)
[2017-05-02] MEDS ORDERED: ACETAMINOPHEN 500 MG TABLET ONE (12:19)
[2017-05-02 12:56] LABS: Basophils # 0.1 10*3/uL (0.0-0.2); Basophils % 0.4 % (0.0-0.8); Eosinophils # 0.1 10*3/uL (0.0-0.87); Eosinophils % 0.6 % (0.00-10.9); Hematocrit 38.5 VOL% (35.7-47.0); Hemoglobin 12.7 GM/DL (12.0-16.0); Immature Granulocytes % 0.5 %; Immature Granulocytes Absolute 0.06 #; Lymphocytes % 16.3 % (21.3-54.2); Mean Corpuscular Hemoglobin 29 PG (27-34); Mean Corpuscular Volume 86.5 FL (87-102); Mean Platelet Volume 8.7 FL (9.6-12.0); Monocytes # 0.5 10*3/uL (0.11-0.8); Monocytes % 4.3 % (1.7-12.7); Neutrophils # 9.7 10*3/uL (1.4-7.4); Neutrophils % 77.9 % (38.7-73.9); Platelet Count 459 T/CUMM (130-400); Red Blood Count 4.45 MC/CUMM (3.8-5.5); Red Cell Distribution Width 14.7 % (9.3-17.3); White Blood Count 12.4 T/CUMM (4-12)
[2017-05-02 13:05] LABS: PT Patient Result 10.5 SECS
[2017-05-02 13:21] LABS: Apearance,Urine Slightly Hazy (Clear); Bilirubin,Urine Negative (Negative); Blood, Urine Negative (Negative); Glucose,Urine (UA) 50 mg/dL (Negative); Ketones,Urine 20 mg/dL (Negative); Lactic Acid 1.6 MMOL/L (0.4-2.0); Mucus,Urine Few /LPF (Occasional); Nitrite,Urine Negative (Negative); Protein,Urine Negative; RBC,Urine 5 /HPF (0-4); Urine Color Yellow (Yellow); Urine Specific Gravity 1.023 (1.001-1.035); Urine Urobilinogen < 2.0 EU/DL (0.2-1.0); WBC,Urine 1 /HPF (0-6)
[2017-05-02 13:26] LABS: Alanine Aminotransferase 18 U/L (13-56); Albumin 2.5 G/DL (3.4-5.0); Alkaline Phosphatase 82 U/L (45-117); Amylase 56 U/L (25-115); Aspartate Amino Transferase 20 U/L (0-37); Bilirubin,Total < 0.39 MG/DL (0.2-1.0); Blood Urea Nitrogen 22 MG/DL (7-18); Calcium 8.8 MG/DL (8.5-10.1); Glucose 120 MG/DL (74-106); Osmolality,Calculated 271.2 MOS/KG (273-304); Sodium 134 MMOL/L (136-145); Total Protein 6.4 G/DL (6.4-8.3)
[2017-05-02] MEDS ORDERED: POTASSIUM CHLORIDE 20 MEQ TABLET PO STA (13:55)
[2017-05-02] MEDS ORDERED: POTASSIUM CHLORIDE 20 MEQ TABLET PO ONE ×2 (14:16→23:22)
[2017-05-02] MEDS ORDERED: cefTRIAXone 1,000 MG in SODIUM CHLORIDE 0.9% 100 ML IV STA (15:29)
[2017-05-02] MEDS ORDERED: cefTRIAXone 1,000 MG VIAL ONE (16:04)
[2017-05-02] MEDS ORDERED: MAGNESIUM HYDROXIDE SUSP 30 ML UDCUP PO PRN (17:02)
[2017-05-02] MEDS ORDERED: IBUPROFEN 600 MG TABLET PO PRN (17:02)
[2017-05-02] MEDS ORDERED: ACETAMINOPHEN 325 MG TABLET PO PRN ×2 (17:02)
[2017-05-02] MEDS ORDERED: ALBUTEROL/IPRATROPIUM 3 ML NEB RESP TX PRN (17:02)
[2017-05-02] MEDS ORDERED: BENZONATATE 100 MG CAPSULE PO PRN (17:02)
[2017-05-02] MEDS ORDERED: SKIN HEALING OINT (AQUAPHOR) 50 GM TUBE TOP PRN (17:02)
[2017-05-02] MEDS ORDERED: CETIRIZINE 10 MG TABLET PO PRN (17:02)
[2017-05-02] MEDS: methylPREDNISolone SOD SUC 40 MG/1 ML VIAL IV SCH (18:18)
[2017-05-02] MEDS: CHOLECALCIFEROL 1,000 UNIT TABLET PO SCH (18:18)
[2017-05-02] MEDS: AZITHROMYCIN INJ 500 MG in SODIUM CHLORIDE 0.9% 250 ML IV SCH (18:18)
[2017-05-02] MEDS: ENOXAPARIN 40 MG/0.4 ML SYRINGE SUBCUT SCH (18:18)
[2017-05-02] MEDS: PANTOPRAZOLE 40 MG TABLET PO SCH (18:18)
[2017-05-02] MEDS: SODIUM CHLORIDE 0.9% 1,000 ML IV SCH (18:18)
[2017-05-02] MEDS: SUCRALFATE 1 GM TABLET PO SCH ×2 (18:18→20:54)
[2017-05-02] MEDS: DOCUSATE SODIUM 100 MG CAPSULE PO SCH (20:54)
[2017-05-02] MEDS: ONDANSETRON 4 MG/2 ML VIAL IV PRN (20:54)
[2017-05-03] MEDS: IPRATROPIUM 500 MCG/2.5 ML NEB RESP TX SCH ×5 (00:48→23:58)
[2017-05-03] MEDS: methylPREDNISolone SOD SUC 40 MG/1 ML VIAL IV SCH ×3 (01:19→16:55)
[2017-05-03] MEDS: KETOROLAC 15 MG/1 ML VIAL IV SCH ×5 (01:20→23:28)
[2017-05-03] MEDS: SODIUM CHLORIDE 0.9% 1,000 ML IV SCH ×2 (05:53→19:26)
[2017-05-03 07:05] LABS: Basophils % 0.1 % (0.0-0.8); Hematocrit 33.2 VOL% (35.7-47.0); Hemoglobin 10.9 GM/DL (12.0-16.0); Immature Granulocytes % 0.4 %; Immature Granulocytes Absolute 0.03 #; Lymphocytes # 0.7 10*3/uL (1.4-4.0); Lymphocytes % 9.6 % (21.3-54.2); Mean Corpuscular HGB Conc 32.8 GM/DL (32-36); Mean Corpuscular Hemoglobin 29 PG (27-34); Mean Corpuscular Volume 87.8 FL (87-102); Mean Platelet Volume 9.2 FL (9.6-12.0); Monocytes % 0.4 % (1.7-12.7); Neutrophils # 6.2 10*3/uL (1.4-7.4); Neutrophils % 89.5 % (38.7-73.9); Platelet Count 459 T/CUMM (130-400); Red Blood Count 3.78 MC/CUMM (3.8-5.5); Red Cell Distribution Width 14.6 % (9.3-17.3)
[2017-05-03 07:19] LABS: White Blood Count 6.9 T/CUMM (4-12)
[2017-05-03 07:26] LABS: Albumin 2.2 G/DL (3.4-5.0); Bilirubin,Total 0.5 MG/DL (0.2-1.0); Calcium 8.5 MG/DL (8.5-10.1); Magnesium 1.9 MG/DL (1.8-2.4); Osmolality,Calculated 281.4 MOS/KG (273-304); Potassium 4.6 MMOL/L (3.5-5.1); Risk Ratio 3.27; Total Protein 5.4 G/DL (6.4-8.3); VLDL CHOLESTEROL 12.6 MG/DL
[2017-05-03 07:34] LABS: Band Neutrophils 1 % (0-10); Lymphocytes 9 % (20-55); Platelet Estimate Normal; Segmented Neutrophils 90 % (50-85); Total Cells Counted 100
[2017-05-03] MEDS ORDERED: hydroCHLOROthiazide 12.5 MG CAPSULE PO SCH (09:00)
[2017-05-03] MEDS ORDERED: PANTOPRAZOLE 40 MG TABLET PO SCH (09:00)
[2017-05-03] MEDS: POTASSIUM CHLORIDE 20 MEQ TABLET PO SCH ×2 (09:23→21:58)
[2017-05-03] MEDS: METOPROLOL TARTRATE 50 MG TABLET PO SCH ×2 (09:24→21:58)
[2017-05-03] MEDS: MULTIVITAMIN (CENTRUM) TABLET PO SCH (09:24)
[2017-05-03] MEDS: DOCUSATE SODIUM 100 MG CAPSULE PO SCH ×2 (09:24→22:36)
[2017-05-03] MEDS: SUCRALFATE 1 GM TABLET PO SCH ×4 (09:24→21:58)
[2017-05-03] MEDS: FUROSEMIDE 20 MG/2 ML VIAL IV SCH (10:06)
[2017-05-03] MEDS ORDERED: ATENOLOL 50 MG TABLET PO SCH (12:00)
[2017-05-03] MEDS ORDERED: NON-FORMULARY MEDICATION (Tiotropium Br/Olodaterol Hcl [Stiolto Respimat Inhal Spray] 2 PU IH SCH (12:00)
[2017-05-03] MEDS: cefTRIAXone 1,000 MG in SYRINGE 1 EACH IV SCH (16:54)
[2017-05-03] MEDS: AZITHROMYCIN INJ 500 MG in SODIUM CHLORIDE 0.9% 250 ML IV SCH (19:22)
[2017-05-03] MEDS: ENOXAPARIN 40 MG/0.4 ML SYRINGE SUBCUT SCH (21:58)
[2017-05-03] MEDS: PANTOPRAZOLE 40 MG TABLET PO SCH (21:58)
[2017-05-04] MEDS: methylPREDNISolone SOD SUC 40 MG/1 ML VIAL IV SCH ×3 (02:38→17:15)
[2017-05-04] MEDS: KETOROLAC 15 MG/1 ML VIAL IV SCH ×4 (04:56→23:22)
[2017-05-04] MEDS: IPRATROPIUM 500 MCG/2.5 ML NEB RESP TX SCH ×2 (07:19→14:51)
[2017-05-04 07:34] LABS: Basophils % 0.1 % (0.0-0.8); Hematocrit 35.4 VOL% (35.7-47.0); Hemoglobin 11.4 GM/DL (12.0-16.0); Immature Granulocytes % 0.6 %; Immature Granulocytes Absolute 0.06 #; Lymphocytes # 1.5 10*3/uL (1.4-4.0); Lymphocytes % 13.5 % (21.3-54.2); Mean Corpuscular HGB Conc 32.2 GM/DL (32-36); Mean Corpuscular Hemoglobin 29 PG (27-34); Mean Corpuscular Volume 89.6 FL (87-102); Mean Platelet Volume 9.6 FL (9.6-12.0); Monocytes # 0.1 10*3/uL (0.11-0.8); Monocytes % 1.2 % (1.7-12.7); Neutrophils # 9.1 10*3/uL (1.4-7.4); Neutrophils % 84.6 % (38.7-73.9); Red Blood Count 3.95 MC/CUMM (3.8-5.5)
[2017-05-04 07:44] LABS: Platelet Count 602 T/CUMM (130-400); White Blood Count 10.8 T/CUMM (4-12)
[2017-05-04 08:09] LABS: Calcium 8.6 MG/DL (8.5-10.1); Osmolality,Calculated 284.4 MOS/KG (273-304); Potassium 4.5 MMOL/L (3.5-5.1)
[2017-05-04] MEDS: FUROSEMIDE 20 MG/2 ML VIAL IV SCH (09:18)
[2017-05-04] MEDS: POTASSIUM CHLORIDE 20 MEQ TABLET PO SCH ×2 (09:19→21:29)
[2017-05-04] MEDS: SUCRALFATE 1 GM TABLET PO SCH ×4 (09:19→21:29)
[2017-05-04] MEDS: MULTIVITAMIN (CENTRUM) TABLET PO SCH (09:19)
[2017-05-04] MEDS: DOCUSATE SODIUM 100 MG CAPSULE PO SCH ×2 (09:19→21:29)
[2017-05-04] MEDS: METOPROLOL TARTRATE 50 MG TABLET PO SCH ×2 (09:19→21:29)
[2017-05-04] MEDS: SODIUM CHLORIDE 0.9% 1,000 ML IV SCH ×2 (10:15→21:34)
[2017-05-04] MEDS: cefTRIAXone 1,000 MG in SYRINGE 1 EACH IV SCH (17:10)
[2017-05-04] MEDS: CHOLECALCIFEROL 1,000 UNIT TABLET PO SCH (17:10)
[2017-05-04] MEDS: AZITHROMYCIN INJ 500 MG in SODIUM CHLORIDE 0.9% 250 ML IV SCH (17:20)
[2017-05-04] MEDS: PANTOPRAZOLE 40 MG TABLET PO SCH (18:24)
[2017-05-04] MEDS: ENOXAPARIN 40 MG/0.4 ML SYRINGE SUBCUT SCH (18:24)
[2017-05-04] MEDS: ALBUTEROL/IPRATROPIUM 3 ML NEB RESP TX SCH (20:39)
[2017-05-05] MEDS: methylPREDNISolone SOD SUC 40 MG/1 ML VIAL IV SCH (01:35)
[2017-05-05] MEDS: KETOROLAC 15 MG/1 ML VIAL IV SCH ×3 (01:42→11:47)
[2017-05-05] MEDS: ONDANSETRON 4 MG/2 ML VIAL IV PRN (06:07)
[2017-05-05] MEDS: ALBUTEROL/IPRATROPIUM 3 ML NEB RESP TX SCH ×3 (07:05→14:00)
[2017-05-05 07:14] LABS: Calcium 8.6 MG/DL (8.5-10.1); Osmolality,Calculated 285.3 MOS/KG (273-304); Potassium 4.3 MMOL/L (3.5-5.1)
[2017-05-05] MEDS ORDERED: methylPREDNISolone SOD SUC 40 MG/1 ML VIAL IV SCH (08:30)
[2017-05-05] MEDS: FUROSEMIDE 20 MG/2 ML VIAL IV SCH (08:55)
[2017-05-05] MEDS: MULTIVITAMIN (CENTRUM) TABLET PO SCH (08:56)
[2017-05-05] MEDS: METOPROLOL TARTRATE 50 MG TABLET PO SCH (08:56)
[2017-05-05] MEDS: SUCRALFATE 1 GM TABLET PO SCH ×2 (08:56→11:46)
[2017-05-05] MEDS: DOCUSATE SODIUM 100 MG CAPSULE PO SCH (08:56)
[2017-05-05] MEDS: POTASSIUM CHLORIDE 20 MEQ TABLET PO SCH (08:56)
[2017-05-05] MEDS: cefTRIAXone 1,000 MG in SYRINGE 1 EACH IV SCH (17:43)
[2017-05-05 17:56] VITALS: BP 144/68
== END 2017-05-05 17:50 | disposition swing bed (61) | DRG 192 ==
LOC: N.ED 10:40 → N.EDINP 15:36 → N.5E 17:01
PROVIDERS: ADMIT Internal Medicine; ATTEND Internal Medicine

== ENCOUNTER 2017-10-23 08:57 | Inpatient (IN) ==
[2017-10-23] MEDS ORDERED: HYDROCORTISONE 100 MG VIAL IV STA (10:29)
[2017-10-23] MEDS ORDERED: cefTRIAXone 1,000 MG in SODIUM CHLORIDE 0.9% 100 ML IV STA (10:29)
[2017-10-23] MEDS ORDERED: cefTRIAXone 1,000 MG in SYRINGE 1 EACH IV STA (10:34)
[2017-10-23] MEDS ORDERED: HEPARIN/NACL 0.9% 2 UNITS/ML 500 ML IV ONE ×2 (10:41→11:52)
[2017-10-23] MEDS ORDERED: MIDAZOLAM 2 MG/2 ML VIAL ONE (10:42)
[2017-10-23] MEDS ORDERED: MAGNESIUM SULF RIDER 2 GM in PREMIX 1 EACH IV PRN (10:54)
[2017-10-23] MEDS ORDERED: HYDROmorphone 2 MG/1 ML VIAL ONE (10:54)
[2017-10-23] MEDS ORDERED: MAGNESIUM SULF RIDER 4 GM in PREMIX 1 EACH IV PRN (10:54)
[2017-10-23] MEDS ORDERED: ALTEPLASE 2 MG VIAL ONE ×2 (11:04→12:38)
[2017-10-23] MEDS: ALTEPLASE 12 MG in SODIUM CHLORIDE 0.9% 240 ML IV SCH ×2 (11:54→11:58)
[2017-10-23] MEDS ORDERED: ONDANSETRON 4 MG/2 ML VIAL IV PRN (12:23)
[2017-10-23] MEDS ORDERED: SODIUM CHLORIDE 0.9% 1,000 ML IV SCH ×2 (12:30)
[2017-10-23] MEDS ORDERED: HEPARIN DRIP 25,000 UNITS/500 ML PREMIX IV SCH ×2 (12:30)
[2017-10-23 13:30] LABS: PT Patient Result 10.8 SECS; Partial Thromboplastin Time 29.8 SECS (0-40)
[2017-10-23] MEDS: ATENOLOL 50 MG TABLET PO SCH (14:39)
[2017-10-23] MEDS: IPRATROPIUM 500 MCG/2.5 ML NEB RESP TX SCH (15:55)
[2017-10-23 17:02] LABS: PT Patient Result 10.9 SECS
[2017-10-23] MEDS ORDERED: MORPHINE 4 MG/1 ML VIAL IV PRN (19:53)
[2017-10-23] MEDS ORDERED: NON-FORMULARY MEDICATION (Omeprazole [Omeprazole] 20 MG) PO SCH (21:00)
[2017-10-23] MEDS: CLORAZEPATE 3.75 MG TABLET PO PRN (22:13)
[2017-10-23] MEDS: PANTOPRAZOLE 40 MG TABLET PO SCH (22:13)
[2017-10-23] MEDS: predniSONE 10 MG TABLET PO SCH (22:13)
[2017-10-24] MEDS: IPRATROPIUM 500 MCG/2.5 ML NEB RESP TX SCH ×3 (00:17→15:06)
[2017-10-24 01:33] LABS: Basophils % 0.1 % (0.0-0.8); Hematocrit 30.6 VOL% (35.7-47.0); Hemoglobin 9.7 GM/DL (12.0-16.0); Immature Granulocytes % 0.7 %; Immature Granulocytes Absolute 0.11 #; Lymphocytes % 6.2 % (21.3-54.2); Mean Corpuscular HGB Conc 31.7 GM/DL (32-36); Mean Corpuscular Hemoglobin 29 PG (27-34); Mean Corpuscular Volume 91.1 FL (87-102); Mean Platelet Volume 9.6 FL (9.6-12.0); Monocytes # 0.4 10*3/uL (0.11-0.8); Monocytes % 2.6 % (1.7-12.7); Neutrophils # 14.5 10*3/uL (1.4-7.4); Neutrophils % 90.4 % (38.7-73.9); Platelet Count 226 T/CUMM (130-400); Red Blood Count 3.36 MC/CUMM (3.8-5.5); Red Cell Distribution Width 16.8 % (9.3-17.3)
[2017-10-24 01:42] LABS: PT Patient Result 10.9 SECS
[2017-10-24 02:02] LABS: Albumin 1.8 G/DL (3.4-5.0); Bilirubin,Total 0.4 MG/DL (0.2-1.0); Calcium 7.3 MG/DL (8.5-10.1); Osmolality,Calculated 285.1 MOS/KG (273-304); Potassium 3.2 MMOL/L (3.5-5.1); Total Protein 5.6 G/DL (6.4-8.3)
[2017-10-24 02:06] LABS: Partial Thromboplastin Time 42.5 SECS (0-40)
[2017-10-24] MEDS: ALTEPLASE 12 MG in SODIUM CHLORIDE 0.9% 240 ML IV SCH (02:14)
[2017-10-24] MEDS: predniSONE 10 MG TABLET PO SCH ×2 (10:18→20:26)
[2017-10-24] MEDS: ATENOLOL 50 MG TABLET PO SCH (12:00)
[2017-10-24] MEDS: POTASSIUM CHLORIDE 20 MEQ TABLET PO PRN ×4 (13:04→19:08)
[2017-10-24 13:08] LABS: Partial Thromboplastin Time 24.6 SECS (0-40)
[2017-10-24] MEDS ORDERED: DIAZEPAM 5 MG TABLET PO ONE (16:34)
[2017-10-24] MEDS: PANTOPRAZOLE 40 MG TABLET PO SCH (20:26)
[2017-10-24] MEDS: CLORAZEPATE 3.75 MG TABLET PO PRN (20:26)
[2017-10-24] MEDS: ZALEPLON 5 MG CAPSULE PO PRN (23:47)
[2017-10-25] MEDS ORDERED: MIDAZOLAM 2 MG/2 ML VIAL IV ONE (00:01)
[2017-10-25] MEDS ORDERED: fentaNYL 100 MCG/2 ML VIAL IV ONE (00:01)
[2017-10-25] MEDS: IPRATROPIUM 500 MCG/2.5 ML NEB RESP TX SCH ×3 (00:10→15:01)
[2017-10-25 02:05] LABS: Basophils % 0.1 % (0.0-0.8); Hematocrit 25.1 VOL% (35.7-47.0); Immature Granulocytes % 0.7 %; Immature Granulocytes Absolute 0.08 #; Lymphocytes # 0.9 10*3/uL (1.4-4.0); Lymphocytes % 7.5 % (21.3-54.2); Mean Corpuscular HGB Conc 31.9 GM/DL (32-36); Mean Corpuscular Hemoglobin 29 PG (27-34); Mean Corpuscular Volume 90.9 FL (87-102); Mean Platelet Volume 9.4 FL (9.6-12.0); Monocytes # 0.4 10*3/uL (0.11-0.8); Monocytes % 3.6 % (1.7-12.7); Neutrophils # 10.6 10*3/uL (1.4-7.4); Neutrophils % 88.1 % (38.7-73.9); Platelet Count 222 T/CUMM (130-400); Red Blood Count 2.76 MC/CUMM (3.8-5.5); Red Cell Distribution Width 16.9 % (9.3-17.3); White Blood Count 12.1 T/CUMM (4-12)
[2017-10-25 02:14] LABS: INR 0.9; PT Patient Result 9.9 SECS
[2017-10-25 02:15] LABS: Partial Thromboplastin Time 24.8 SECS (0-40)
[2017-10-25 02:32] LABS: Calcium 7.1 MG/DL (8.5-10.1); Osmolality,Calculated 299.5 MOS/KG (273-304); Potassium 4.4 MMOL/L (3.5-5.1)
[2017-10-25] MEDS ORDERED: DIAZEPAM 5 MG TABLET PO ONE (08:38)
[2017-10-25] MEDS: predniSONE 10 MG TABLET PO SCH ×2 (10:22→20:17)
[2017-10-25] MEDS: ATENOLOL 50 MG TABLET PO SCH (12:25)
[2017-10-25 13:17] LABS: Partial Thromboplastin Time 21.8 SECS (0-40)
[2017-10-25] MEDS: CLORAZEPATE 3.75 MG TABLET PO PRN (20:17)
[2017-10-25] MEDS: ZALEPLON 5 MG CAPSULE PO PRN (20:17)
[2017-10-25] MEDS: APIXABAN 5 MG TABLET PO SCH (20:17)
[2017-10-25] MEDS: PANTOPRAZOLE 40 MG TABLET PO SCH (20:17)
[2017-10-26] MEDS: IPRATROPIUM 500 MCG/2.5 ML NEB RESP TX SCH ×4 (00:08→23:38)
[2017-10-26 01:35] LABS: Basophils % 0.1 % (0.0-0.8); Eosinophils % 0.1 % (0.00-10.9); Hematocrit 22.1 VOL% (35.7-47.0); Immature Granulocytes % 0.9 %; Lymphocytes % 9.2 % (21.3-54.2); Mean Corpuscular HGB Conc 31.7 GM/DL (32-36); Mean Corpuscular Hemoglobin 29 PG (27-34); Mean Corpuscular Volume 91.3 FL (87-102); Mean Platelet Volume 9.4 FL (9.6-12.0); Monocytes # 0.6 10*3/uL (0.11-0.8); Monocytes % 5.6 % (1.7-12.7); Neutrophils # 9.3 10*3/uL (1.4-7.4); Neutrophils % 84.1 % (38.7-73.9); Platelet Count 189 T/CUMM (130-400); Red Blood Count 2.42 MC/CUMM (3.8-5.5); Red Cell Distribution Width 16.7 % (9.3-17.3); White Blood Count 11.1 T/CUMM (4-12)
[2017-10-26 01:48] LABS: Calcium 7.4 MG/DL (8.5-10.1); Osmolality,Calculated 295.1 MOS/KG (273-304); Potassium 4.3 MMOL/L (3.5-5.1)
[2017-10-26 01:51] LABS: Partial Thromboplastin Time 23.2 SECS (0-40)
[2017-10-26] MEDS ORDERED: SODIUM CHLORIDE 0.9% 1,000 ML IV PRN (06:59)
[2017-10-26] MEDS: predniSONE 10 MG TABLET PO SCH ×2 (08:14→20:20)
[2017-10-26] MEDS: APIXABAN 5 MG TABLET PO SCH ×2 (08:14→20:20)
[2017-10-26] MEDS: ATENOLOL 50 MG TABLET PO SCH (12:20)
[2017-10-26 15:18] LABS: Partial Thromboplastin Time 22.6 SECS (0-40)
[2017-10-26] MEDS ORDERED: TOCILIZUMAB SUBCUT SCH (16:00)
[2017-10-26] MEDS: PANTOPRAZOLE 40 MG TABLET PO SCH (20:20)
[2017-10-27 05:53] LABS: Basophils % 0.1 % (0.0-0.8); Eosinophils % 0.1 % (0.00-10.9); Hematocrit 31.5 VOL% (35.7-47.0); Hemoglobin 10.1 GM/DL (12.0-16.0); Immature Granulocytes % 1.7 %; Immature Granulocytes Absolute 0.19 #; Lymphocytes % 9.2 % (21.3-54.2); Mean Corpuscular HGB Conc 32.1 GM/DL (32-36); Mean Corpuscular Hemoglobin 29 PG (27-34); Mean Corpuscular Volume 89.2 FL (87-102); Mean Platelet Volume 9.9 FL (9.6-12.0); Monocytes # 0.5 10*3/uL (0.11-0.8); Monocytes % 4.7 % (1.7-12.7); Neutrophils # 9.2 10*3/uL (1.4-7.4); Neutrophils % 84.2 % (38.7-73.9); Platelet Count 228 T/CUMM (130-400); Red Blood Count 3.53 MC/CUMM (3.8-5.5); White Blood Count 10.9 T/CUMM (4-12)
[2017-10-27 06:24] LABS: Calcium 8.3 MG/DL (8.5-10.1); Osmolality,Calculated 285.4 MOS/KG (273-304); Potassium 4.1 MMOL/L (3.5-5.1)
[2017-10-27] MEDS: LOSARTAN 25 MG TABLET PO SCH (08:15)
[2017-10-27] MEDS: APIXABAN 5 MG TABLET PO SCH ×2 (08:15→21:37)
[2017-10-27] MEDS: predniSONE 10 MG TABLET PO SCH ×2 (08:15→21:37)
[2017-10-27] MEDS: ATENOLOL 50 MG TABLET PO SCH (08:15)
[2017-10-27] MEDS: IPRATROPIUM 500 MCG/2.5 ML NEB RESP TX SCH ×2 (08:56→14:00)
[2017-10-27] MEDS: PANTOPRAZOLE 40 MG TABLET PO SCH (21:37)
[2017-10-27] MEDS: ZALEPLON 5 MG CAPSULE PO PRN (21:37)
[2017-10-28] MEDS: IPRATROPIUM 500 MCG/2.5 ML NEB RESP TX SCH ×3 (03:45→15:39)
[2017-10-28 05:42] LABS: Basophils % 0.2 % (0.0-0.8); Eosinophils % 0.2 % (0.00-10.9); Hematocrit 34.6 VOL% (35.7-47.0); Hemoglobin 11.3 GM/DL (12.0-16.0); Immature Granulocytes Absolute 0.25 #; Lymphocytes # 1.2 10*3/uL (1.4-4.0); Lymphocytes % 9.8 % (21.3-54.2); Mean Corpuscular HGB Conc 32.7 GM/DL (32-36); Mean Corpuscular Hemoglobin 29 PG (27-34); Mean Corpuscular Volume 88.5 FL (87-102); Mean Platelet Volume 9.7 FL (9.6-12.0); Monocytes # 0.5 10*3/uL (0.11-0.8); Monocytes % 3.9 % (1.7-12.7); Neutrophils # 10.4 10*3/uL (1.4-7.4); Neutrophils % 83.9 % (38.7-73.9); Platelet Count 308 T/CUMM (130-400); Red Blood Count 3.91 MC/CUMM (3.8-5.5); Red Cell Distribution Width 16.5 % (9.3-17.3); White Blood Count 12.4 T/CUMM (4-12)
[2017-10-28 06:24] LABS: Calcium 8.1 MG/DL (8.5-10.1); Osmolality,Calculated 287.1 MOS/KG (273-304); Potassium 3.9 MMOL/L (3.5-5.1)
[2017-10-28] MEDS: AZITHROMYCIN 250 MG TABLET PO SCH (08:40)
[2017-10-28] MEDS: predniSONE 10 MG TABLET PO SCH ×2 (08:40→21:08)
[2017-10-28] MEDS: ATENOLOL 50 MG TABLET PO SCH (08:41)
[2017-10-28] MEDS: LOSARTAN 25 MG TABLET PO SCH (08:41)
[2017-10-28] MEDS: APIXABAN 5 MG TABLET PO SCH ×2 (08:41→21:08)
[2017-10-28] MEDS ORDERED: DOCUSATE SODIUM 100 MG CAPSULE PO PRN (14:25)
[2017-10-28] MEDS ORDERED: BISACODYL 5 MG TABLET PO PRN (14:25)
[2017-10-28] MEDS ORDERED: LACTULOSE 20 GM/30 ML UDCUP PO PRN (14:25)
[2017-10-28] MEDS: PANTOPRAZOLE 40 MG TABLET PO SCH (21:08)
[2017-10-29] MEDS: IPRATROPIUM 500 MCG/2.5 ML NEB RESP TX SCH ×3 (00:41→15:10)
[2017-10-29 03:33] LABS: Basophils % 0.2 % (0.0-0.8); Eosinophils % 0.2 % (0.00-10.9); Hematocrit 32.8 VOL% (35.7-47.0); Hemoglobin 10.7 GM/DL (12.0-16.0); Immature Granulocytes % 1.3 %; Immature Granulocytes Absolute 0.23 #; Lymphocytes # 1.3 10*3/uL (1.4-4.0); Lymphocytes % 7.4 % (21.3-54.2); Mean Corpuscular HGB Conc 32.6 GM/DL (32-36); Mean Corpuscular Hemoglobin 29 PG (27-34); Mean Corpuscular Volume 89.6 FL (87-102); Mean Platelet Volume 9.6 FL (9.6-12.0); Monocytes # 0.6 10*3/uL (0.11-0.8); Monocytes % 3.6 % (1.7-12.7); Neutrophils % 87.3 % (38.7-73.9); Platelet Count 339 T/CUMM (130-400); Red Blood Count 3.66 MC/CUMM (3.8-5.5); Red Cell Distribution Width 16.5 % (9.3-17.3); White Blood Count 17.2 T/CUMM (4-12)
[2017-10-29 03:49] LABS: Calcium 8.5 MG/DL (8.5-10.1); Osmolality,Calculated 285.4 MOS/KG (273-304); Potassium 3.6 MMOL/L (3.5-5.1)
[2017-10-29] MEDS: APIXABAN 5 MG TABLET PO SCH ×2 (08:35→20:38)
[2017-10-29] MEDS: LOSARTAN 25 MG TABLET PO SCH (08:35)
[2017-10-29] MEDS: predniSONE 10 MG TABLET PO SCH ×2 (08:35→20:38)
[2017-10-29] MEDS: ATENOLOL 50 MG TABLET PO SCH (08:35)
[2017-10-29] MEDS ORDERED: CAMPHOR/MENTHOL LOTION 222 ML BOTTLE TOP PRN (14:35)
[2017-10-29] MEDS: ZALEPLON 5 MG CAPSULE PO PRN (20:38)
[2017-10-29] MEDS: PANTOPRAZOLE 40 MG TABLET PO SCH (20:38)
[2017-10-30] MEDS: IPRATROPIUM 500 MCG/2.5 ML NEB RESP TX SCH ×4 (01:05→23:47)
[2017-10-30 05:08] LABS: Basophils % 0.2 % (0.0-0.8); Eosinophils % 0.2 % (0.00-10.9); Hematocrit 33.7 VOL% (35.7-47.0); Hemoglobin 10.8 GM/DL (12.0-16.0); Immature Granulocytes % 1.7 %; Immature Granulocytes Absolute 0.21 #; Lymphocytes # 1.1 10*3/uL (1.4-4.0); Lymphocytes % 8.8 % (21.3-54.2); Mean Corpuscular Hemoglobin 29 PG (27-34); Mean Corpuscular Volume 89.2 FL (87-102); Mean Platelet Volume 9.4 FL (9.6-12.0); Monocytes # 0.4 10*3/uL (0.11-0.8); Monocytes % 3.3 % (1.7-12.7); Neutrophils # 10.8 10*3/uL (1.4-7.4); Neutrophils % 85.8 % (38.7-73.9); Platelet Count 416 T/CUMM (130-400); Red Blood Count 3.78 MC/CUMM (3.8-5.5); Red Cell Distribution Width 16.7 % (9.3-17.3); White Blood Count 12.6 T/CUMM (4-12)
[2017-10-30 05:45] LABS: Calcium 9.1 MG/DL (8.5-10.1); Osmolality,Calculated 284.4 MOS/KG (273-304); Potassium 4.3 MMOL/L (3.5-5.1)
[2017-10-30] MEDS: ATENOLOL 50 MG TABLET PO SCH (08:38)
[2017-10-30] MEDS: LOSARTAN 25 MG TABLET PO SCH (08:38)
[2017-10-30] MEDS: AZITHROMYCIN 250 MG TABLET PO SCH (08:38)
[2017-10-30] MEDS: APIXABAN 5 MG TABLET PO SCH ×2 (08:39→20:46)
[2017-10-30] MEDS: predniSONE 10 MG TABLET PO SCH ×2 (08:41→20:48)
[2017-10-30] MEDS ORDERED: TUBERCULIN SKIN TEST 0.1 ML SYRINGE INTRADERM ONE (10:26)
[2017-10-30] MEDS: PANTOPRAZOLE 40 MG TABLET PO SCH (20:45)
[2017-10-30] MEDS: ZALEPLON 5 MG CAPSULE PO PRN (20:47)
[2017-10-31 04:02] LABS: Basophils % 0.2 % (0.0-0.8); Eosinophils % 0.3 % (0.00-10.9); Hematocrit 34.3 VOL% (35.7-47.0); Hemoglobin 10.7 GM/DL (12.0-16.0); Immature Granulocytes % 1.8 %; Immature Granulocytes Absolute 0.21 #; Lymphocytes # 1.1 10*3/uL (1.4-4.0); Lymphocytes % 9.4 % (21.3-54.2); Mean Corpuscular HGB Conc 31.2 GM/DL (32-36); Mean Corpuscular Hemoglobin 28 PG (27-34); Mean Corpuscular Volume 90.7 FL (87-102); Mean Platelet Volume 9.2 FL (9.6-12.0); Monocytes # 0.5 10*3/uL (0.11-0.8); Monocytes % 3.8 % (1.7-12.7); Neutrophils # 9.9 10*3/uL (1.4-7.4); Neutrophils % 84.5 % (38.7-73.9); Platelet Count 477 T/CUMM (130-400); Red Blood Count 3.78 MC/CUMM (3.8-5.5); Red Cell Distribution Width 16.5 % (9.3-17.3); White Blood Count 11.7 T/CUMM (4-12)
[2017-10-31 04:28] LABS: Calcium 8.6 MG/DL (8.5-10.1); Osmolality,Calculated 286.3 MOS/KG (273-304); Potassium 3.8 MMOL/L (3.5-5.1)
[2017-10-31] MEDS: IPRATROPIUM 500 MCG/2.5 ML NEB RESP TX SCH ×3 (08:50→23:19)
[2017-10-31] MEDS ORDERED: predniSONE 5 MG TABLET ONE (08:58)
[2017-10-31] MEDS: LOSARTAN 25 MG TABLET PO SCH (09:55)
[2017-10-31] MEDS: ATENOLOL 50 MG TABLET PO SCH (09:55)
[2017-10-31] MEDS: APIXABAN 5 MG TABLET PO SCH ×2 (09:55→20:59)
[2017-10-31] MEDS: predniSONE 10 MG TABLET PO SCH ×2 (09:55→20:59)
[2017-10-31] MEDS: BUDESONIDE/FORMOTEROL 160-4.5 INHALER 6 GM INH SCH ×2 (09:56→21:00)
[2017-10-31] MEDS: BENZONATATE 100 MG CAPSULE PO PRN (16:11)
[2017-10-31] MEDS: PANTOPRAZOLE 40 MG TABLET PO SCH (20:59)
[2017-10-31] MEDS ORDERED: diphenhydrAMINE CAP 25 MG CAPSULE PO PRN (21:12)
[2017-10-31] MEDS ORDERED: ZALEPLON 5 MG CAPSULE PO PRN (21:12)
[2017-10-31] MEDS ORDERED: ACETAMINOPHEN 325 MG TABLET PO PRN (21:13)
[2017-11-01] MEDS: BENZONATATE 100 MG CAPSULE PO PRN ×2 (01:59→08:29)
[2017-11-01 06:07] LABS: Basophils % 0.1 % (0.0-0.8); Eosinophils % 0.1 % (0.00-10.9); Hemoglobin 10.5 GM/DL (12.0-16.0); Immature Granulocytes % 1.3 %; Immature Granulocytes Absolute 0.13 #; Lymphocytes # 1.2 10*3/uL (1.4-4.0); Mean Corpuscular HGB Conc 30.9 GM/DL (32-36); Mean Corpuscular Hemoglobin 28 PG (27-34); Mean Corpuscular Volume 91.2 FL (87-102); Mean Platelet Volume 8.9 FL (9.6-12.0); Monocytes # 0.4 10*3/uL (0.11-0.8); Monocytes % 4.2 % (1.7-12.7); Neutrophils # 8.4 10*3/uL (1.4-7.4); Neutrophils % 82.3 % (38.7-73.9); Platelet Count 485 T/CUMM (130-400); Red Blood Count 3.73 MC/CUMM (3.8-5.5); Red Cell Distribution Width 16.6 % (9.3-17.3); White Blood Count 10.2 T/CUMM (4-12)
[2017-11-01 06:32] LABS: Osmolality,Calculated 288.3 MOS/KG (273-304); Potassium 3.6 MMOL/L (3.5-5.1)
[2017-11-01] MEDS ORDERED: predniSONE 5 MG TABLET ONE (08:13)
[2017-11-01] MEDS: IPRATROPIUM 500 MCG/2.5 ML NEB RESP TX SCH (08:20)
[2017-11-01] MEDS: ATENOLOL 50 MG TABLET PO SCH (08:29)
[2017-11-01] MEDS: LOSARTAN 25 MG TABLET PO SCH (08:29)
[2017-11-01] MEDS: AZITHROMYCIN 250 MG TABLET PO SCH (08:29)
[2017-11-01] MEDS: APIXABAN 5 MG TABLET PO SCH (08:29)
[2017-11-01] MEDS: predniSONE 10 MG TABLET PO SCH (08:30)
[2017-11-01] MEDS: BUDESONIDE/FORMOTEROL 160-4.5 INHALER 6 GM INH SCH (08:30)
[2017-11-01] MEDS ORDERED: CEFDINIR 300 MG CAPSULE PO SCH (09:00)
[2017-11-01 12:17] VITALS: BP 126/53
== END 2017-11-01 15:15 | disposition home health service (06) | DRG 167 ==
LOC: EDBD → EDUNIT# → N.ED 08:57 → N.EDINP 10:33 → N.CC 10:35 → N.ED 10:50 → N.CC 12:59 → N.TELEN 10-27 17:35
PROVIDERS: ADMIT Specialist; ATTEND Specialist